=== PATIENT | male | born 1940 | race Caucasian/White ===

== ENCOUNTER 2017-11-20 10:12 | Day surgery (SDC) | payer MEDICARE ==
[2017-11-19 09:48] LABS: Urine Appearance CLEAR; Urine Bilirubin NEGATIVE (NEG); Urine Blood NEGATIVE (NEG); Urine Color YELLOW; Urine Glucose NEGATIVE (NEG); Urine Protein NEGATIVE (NEG); Urine Urobilinogen 0.2 mg/dL (0.2-1.0)
[2017-11-19 09:56] LABS: Urine Microscopic Reflex NO UMIC
[2017-11-19 10:01] LABS: Albumin 3.9 g/dL (3.4-5.0); Bilirubin Total 0.7 mg/dL (0.2-1.0); Potassium 3.9 mmol/L (3.5-5.1); Protein, Total 7.7 g/dL (6.4-8.2)
[2017-11-19 10:18] LABS: Absolute Monocytes 0.4 K/uL (0.1-1.3); Absolute Neutrophil 2.7 K/uL (1.8-8.0); Basophils % 0.8 % (0-1.3); Eosinophils % 13.6 % (0-4.4); Hematocrit 43.8 % (39.6-49.0); Lymphocytes % 33.3 % (15.3-44.8); MCH 29.8 pg (27.0-35.0); MCV 90.5 fL (80-100); MPV 7.7 fL (7.6-11.3); Monocytes % 7.4 % (3.3-12.3); RBC Red Blood Cell Count 4.84 M/uL (4.33-5.43)
[2017-11-19 10:22] LABS: Protime INR 0.97
--- OUTSIDE RECORDS SUMMARY | 2017-11-20 10:16 | XMS REPORT | Clinical Summary ---
:1940 Author Organization [facility] Address [address] [place] [address] Care Team Providers Name Role Phone Alex Veras MD Primary Care Provider Allergies No Known Allergies Current Medications Prescription Sig. Disp. Refills Start Date End Date Status losartan (COZAAR) 25 MG Take 25 mg by Active tablet mouth daily. red yeast rice 600 mg Take 600 mg by Active capsule mouth daily. Active Problems Not on file Family History Medical History Relation Name Comments Heart failure Father Stroke Father Cerebral aneurysm Mother Heart attack Mother Relation Name Status Comments Brother Alive Father Mother Social History Tobacco Use Types Packs/Day Years Used Date Former Smoker Smokeless Tobacco: Never Used Alcohol Use Drinks/Week oz/Week Comments No Sex Assigned at Date Recorded Not on file Last Filed Vital Signs Not on file Plan of Treatment Health Maintenance Due Date Last Done Comments SHINGRIX VACCINE (#1) 1991 ZOSTER VACCINE 2001 PNEUMOCOCCAL POLYSACCHARIDE VACCINE AGE 65 AND OVER 2006 PNEUMOCOCCAL-13 2006 INFLUENZA VACCINE 12/12/2017 Results Not on fileafter 11/19/2016 Insurance Payer Benefit Plan / Group Subscriber ID Type Phone Address UHC MEDICARE AARP MEDICARE COMPLETE MCR xxxxxxxxx HMO [phone] [place] [address]
[2017-11-20] MEDS ORDERED: Ringers Lactate 1,000 ML IV ONE (10:35)
[2017-11-20] MEDS ORDERED: LIDOCAINE 1% MPF 5 ML VIAL ONE (11:02)
[2017-11-20] MEDS ORDERED: PROPOFOL 200 MG/20 ML VIAL IV ONE (11:28)
[2017-11-20] MEDS ORDERED: LIDOCAINE 2% MPF 5 ML VIAL ONE (11:29)
[2017-11-20] MEDS ORDERED: ONDANSETRON HCL 40 MG/20 ML VIAL ONE (11:29)
[2017-11-20] MEDS ORDERED: FENTANYL CITR 100 MCG/2 ML ONE (11:29)
[2017-11-20] MEDS ORDERED: MIDAZOLAM HCL 2 MG/2 ML INJ ONE (11:29)
[2017-11-20] MEDS: BUPIVACAINE 0.25% PF 30 ML VIAL ONE ×2 (11:58→12:48)
[2017-11-20] MEDS ORDERED: CEFTRIAXONE/SWI 1gm 1 GM/10 ML SYR IV ONE (12:00)
[2017-11-20] MEDS: BACITRACIN OINTMENT 15 GM TUBE TOP ONE ×2 (12:19→12:49)
== END 2017-11-20 14:29 | disposition home or self-care (01) ==
LOC: OR 10:12
PROVIDERS: ATTEND Internal Medicine Hematology & Oncology
PROC: 0VTTXZZ Resection of Prepuce, External Approach (ICD-10-PCS; principal; 2017-11-20 11:30)
DX: N47.1 Phimosis (principal); N48.1 Balanitis; N39.0 Urinary tract infection, site not specified; I10 Essential (primary) hypertension; E78.5 Hyperlipidemia, unspecified
CPT/HCPCS: 36415; 54161; 80053; 81003; 85025; 85610; 85730; 87086; 87088; 88304; J0696; J2250; J2405; J3010

== ENCOUNTER 2017-12-08 01:12 | Emergency (ER) | payer MEDICARE ==
--- OUTSIDE RECORDS SUMMARY | 2017-12-08 01:14 | XMS REPORT | Clinical Summary ---
:1940 Author Organization [facility] Address [address] [place] [address] Care Team Providers Name Role Phone Alex [...] INFLUENZA VACCINE 12/12/2017 Results Not on fileafter 12/07/2016 Insurance Payer Benefit Plan / Group Subscriber ID Type Phone Address UHC MEDICARE AARP MEDICARE COMPLETE MCR xxxxxxxxx HMO [phone] [place] [address]
--- NOTE | 2017-12-08 01:59 | ER ---
Nurse's Notes [facility] Name: Jake Silva Age: 77 yrs Sex: Male : 1940 Arrival Date: 12/08/2017 Time: 01:17 Bed 20 Private MD: Diagnosis: Bleeding from vein right scrotum resolved Presentation: 12/08 01:27 Presenting complaint: Patient states: Bleeding from testicle about 20 min [employer]; States lp1 "I was just laying in bed and I felt something warm down my leg"; bleeding has stopped now, states circumcision procedure on 11/20/17. Transition of care: patient was not received from another setting of care. Onset of symptoms was December 08, 2017 at 01:00. Risk Assessment: Do you want to hurt yourself or someone else? Patient reports no desire to harm self or others. Initial Sepsis Screen: Does the patient meet any 2 criteria? No. Patient's initial sepsis screen is negative. Does the patient have a suspected source of infection? No. Patient's initial sepsis screen is negative. Care prior to arrival: None. 01:27 Method Of Arrival: Wheelchair lp1 01:27 Acuity: AKILA 5 lp1 Historical: - Allergies: 01:31 No Known Allergies; lp1 - Home Meds: 01:31 losartan oral oral [Active]; lp1 - PMHx: 01:31 Hypertension; lp1 - PSHx: 01:31 circumcision 11/20/2017; lp1 - Immunization history:: Adult Immunizations up to date. - Social history:: Smoking status: Patient/guardian denies using tobacco. - Ebola Screening: : No symptoms or risks identified at this time. Screenin:32 Abuse screen: Denies threats or abuse. Denies injuries from another. Nutritional lp1 screening: No deficits noted. Tuberculosis screening: No symptoms or risk factors identified. Fall Risk None identified. Assessment: 01:31 General: Appears in no apparent distress. Behavior is calm, cooperative, appropriate lp1 for age. Pain: Denies pain. Neuro: Level of Consciousness is awake, alert, obeys commands. Cardiovascular: Patient's skin is warm and dry. Respiratory: Respiratory effort is even, unlabored. GI: No signs and/or symptoms were reported involving the gastrointestinal system. : No signs and/or symptoms were reported regarding the genitourinary system. EENT: No signs and/or symptoms were reported regarding the EENT system. Derm: No active bleeding noted. Musculoskeletal: Circulation, motion, and sensation intact. Vital Signs: 01:30 BP 183 / 66; Pulse 54; Resp 18; Temp 97.9(O); Pulse Ox 97% on R/A; Weight 93.89 kg; lp1 Height 5 ft. 10 in. (177.80 cm); Pain 0/10; 02:15 BP 159 / 55; Pulse 56; Resp 18; Pulse Ox 98% on R/A; lp1 01:30 Body Mass Index 29.70 (93.89 kg, 177.80 cm) lp1 ED Course: 01:17 Patient arrived in ED. es 01:19 Seema Pandya, RN is Primary Nurse. lp1 01:30 Triage completed. lp1 01:30 Arm band placed on left wrist. lp1 01:32 Patient has correct armband on for positive identification. lp1 01:51 Eugenio Holt MD is Attending Physician. pkl 02:14 No provider procedures requiring assistance completed. Patient did not have IV access lp1 during this emergency room visit. 02:14 Dressings: Dressing to right scrotum with triple antibiotic ointment, gauze, tegaderm. lp1 Administered Medications: No medications were administered Outcome: 01:59 Discharge ordered by . pkl 02:15 Discharged to home ambulatory, with significant other. lp1 02:15 Condition: good 02:15 Discharge instructions given to patient, Instructed on discharge instructions, follow up and referral plans. Demonstrated understanding of instructions, follow-up care. 02:15 Patient left the ED. lp1 Signatures: Eugenio Holt MD MD pkJoanna Vazquez Laura, RN RN lp1
--- NOTE | 2017-12-08 01:59 | EDPHYS ---
Physician Documentation [facility] Name: Jake Silva Age: 77 yrs Sex: Male : 1940 Arrival Date: 12/08/2017 Time: 01:17 Bed 20 Private MD: ED Physician Eugenio Holt HPI: 12/08 01:55 This 77 yrs old Male presents to ER via Wheelchair with complaints of pkl Testicular Problem. 01:55 The patient presents with Bleeding from scrotum. Onset: The symptoms/episode pkl began/occurred just prior to arrival. Associated signs and symptoms: The patient has no apparent associated signs or symptoms. Historical: - Allergies: 01:31 No Known Allergies; lp1 - Home Meds: : losartan oral oral [Active]; lp1 - PMHx: : Hypertension; lp1 - PSHx: 01:31 circumcision 11/20/2017; lp1 - Immunization history:: Adult Immunizations up to date. - Social history:: Smoking status: Patient/guardian denies using tobacco. - Ebola Screening: : No symptoms or risks identified at this time. ROS: 01:55 Eyes: Negative for injury, pain, redness, and discharge, ENT: Negative for injury, pkl pain, and discharge, Neck: Negative for injury, pain, and swelling, Cardiovascular: Negative for chest pain, palpitations, and edema, Respiratory: Negative for shortness of breath, cough, wheezing, and pleuritic chest pain, Abdomen/GI: Negative for abdominal pain, nausea, vomiting, diarrhea, and constipation, Back: Negative for injury and pain, MS/Extremity: Negative for injury and deformity, Neuro: Negative for headache, weakness, numbness, tingling, and seizure. 01:55 : Positive for Bleeding from scrotum. Exam: 01:55 Head/Face: Normocephalic, atraumatic. Eyes: Pupils equal round and reactive to light, pkl extra-ocular motions intact. Lids and lashes normal. Conjunctiva and sclera are non-icteric and not injected. Cornea within normal limits. Periorbital areas with no swelling, redness, or edema. ENT: Nares patent. No nasal discharge, no septal abnormalities noted. Tympanic membranes are normal and external auditory canals are clear. Oropharynx with no redness, swelling, or masses, exudates, or evidence of obstruction, uvula midline. Mucous membranes moist. Neck: Trachea midline, no thyromegaly or masses palpated, and no cervical lymphadenopathy. Supple, full range of motion without nuchal rigidity, or vertebral point tenderness. No Meningismus. Chest/axilla: Normal chest wall appearance and motion. Nontender with no deformity. No lesions are appreciated. Cardiovascular: Regular rate and rhythm with a normal S1 and S2. No gallops, murmurs, or rubs. Normal PMI, no JVD. No pulse deficits. Respiratory: Lungs have equal breath sounds bilaterally, clear to auscultation and percussion. No rales, rhonchi or wheezes noted. No increased work of breathing, no retractions or nasal flaring. Abdomen/GI: Soft, non-tender, with normal bowel sounds. No distension or tympany. No guarding or rebound. No evidence of tenderness throughout. Back: No spinal tenderness. No costovertebral tenderness. Full range of motion. MS/ Extremity: Pulses equal, no cyanosis. Neurovascular intact. Full, normal range of motion. Neuro: Awake and alert, GCS 15, oriented to person, place, time, and situation. Cranial nerves II-XII grossly intact. Motor strength 5/5 in all extremities. Sensory grossly intact. Cerebellar exam normal. Normal gait. 01:55 : Bleeding from vein right scrotum resolved. Vital Signs: 01:30 BP 183 / 66; Pulse 54; Resp 18; Temp 97.9(O); Pulse Ox 97% on R/A; Weight 93.89 kg; lp1 Height 5 ft. 10 in. (177.80 cm); Pain 0/10; 02:15 BP 159 / 55; Pulse 56; Resp 18; Pulse Ox 98% on R/A; lp1 01:30 Body Mass Index 29.70 (93.89 kg, 177.80 cm) lp1 MDM: 01:51 Patient medically screened. pkl 01:55 Data reviewed: vital signs, nurses notes. pkl Administered Medications: No medications were administered Disposition: 12/08/17 01:59 Discharged to Home. Impression: Bleeding from vein right scrotum resolved. - Condition is Stable. - Medication Reconciliation Form, Thank You Letter, Antibiotic Education, Prescription Opioid Use form. - Follow up: Private Physician; When: 2 - 3 days; Reason: Re-evaluation by your physician. - Problem is new. - Symptoms have improved. Signatures: Eugenio Holt MD MD pkl Seema Pandya RN RN lp1 Corrections: (The following items were deleted from the chart) 02:15 01:59 12/08/2017 01:59 Discharged to Home. Impression: Bleeding from vein right scrotum lp1 resolved. Condition is Stable. Forms are Medication Reconciliation Form, Thank You Letter, Antibiotic Education, Prescription Opioid Use. Follow up: Private Physician; When: 2 - 3 days; Reason: Re-evaluation by your physician. Problem is new. Symptoms have improved. pkl
== END 2017-12-08 02:15 | disposition home or self-care (01) ==
LOC: ER 01:12
DX: N50.1 Vascular disorders of male genital organs (principal); I10 Essential (primary) hypertension
CPT/HCPCS: 99281

== ENCOUNTER 2019-03-26 12:43 | Emergency (ER) | payer MEDICARE ==
--- NOTE | 2019-03-26 12:48 | ER ---
Nurse's Notes [facility] Name: Jake Silva Age: 78 yrs Sex: Male : 1940 Arrival Date: 03/26/2019 Time: 12:46 Bed Waiting [facility] MD: Diagnosis: ED Course: 03/26 12:46 Patient arrived in ED. mr Administered Medications: No medications were administered Outcome: 12:47 Patient left the ED. hb Signatures: Alicia Braun Heather, RN RN hb
== END 2019-03-26 12:47 | disposition left against medical advice (07) ==
LOC: ER 12:43
DX: Z02.9 Encounter for administrative examinations, unspecified (principal)

== ENCOUNTER 2019-03-26 13:42 | Emergency (ER) | payer MEDICARE ==
--- NOTE | 2019-03-26 15:31 | RAD REPORT ---
EXAM DESCRIPTION: CT - Head Brain Wo Cont - 03/26/2019 3:16 pm CLINICAL HISTORY: Dizziness and visual disturbance COMPARISON: None. TECHNIQUE: Computed axial tomography of the head was obtained. IV contrast was not requested. All CT scans are performed using dose optimization technique as appropriate and may include automated exposure control or mA/KV adjustment according to patient size. FINDINGS: An intracranial bleed is not seen . The ventricles are normal in caliber. No extra-axial fluid collection is noted. Fluid within the sinuses/ mastoids is not seen. IMPRESSION: No acute intracranial abnormality is seen. If patient's symptoms persist MRI of the bra in would be recommended.
--- NOTE | 2019-03-26 16:33 | RAD REPORT ---
EXAM DESCRIPTION: Ricardo Single View03/26/2019 3:41 pm CLINICAL HISTORY: Hypertension COMPARISON: 2013 FINDINGS: The lungs appear clear of acute infiltrate. The heart is normal size IMPRESSION: No acute abnormalities displayed
[2019-03-26 16:59] LABS: Absolute Lymphocytes (CBC) 2.2 K/uL (0.7-4.9); Basophils % 1.2 % (0-1.3); Lymphocytes % 30.4 % (15.3-44.8); RBC Red Blood Cell Count 4.59 M/uL (4.33-5.43)
[2019-03-26 17:15] LABS: Protime INR 0.95
[2019-03-26 18:07] LABS: ALT/SGPT 18 U/L (12-78); AST/SGOT 17 U/L (15-37); Albumin 3.8 g/dL (3.4-5.0); Alkaline Phosphatase 60 U/L (45-117); BUN Blood Urea Nitrogen 22 mg/dL (7-18); Bicarbonate 29 mmol/L (21-32); Bilirubin Direct 0.1 mg/dL (0-0.2); Bilirubin Total 0.4 mg/dL (0.2-1.0); Glucose Level 80 mg/dL (74-106); Magnesium 2.3 mg/dL (1.8-2.4); NT PRO-BNP 303 pg/mL (<450); Potassium 4.5 mmol/L (3.5-5.1); Protein, Total 7.1 g/dL (6.4-8.2); Sodium Level 139 mmol/L (136-145); Troponin (Emerg Dept Use Only) < 0.02 ng/mL (0.0-0.045)
--- NOTE | 2019-03-26 18:18 | ER ---
Nurse's Notes [facility] Name: Jake Silva Age: 78 yrs Sex: Male : 1940 Arrival Date: 03/26/2019 Time: 13:46 Bed 27 Private MD: Diagnosis: Dizziness and giddiness Presentation: 03/26 14:01 Presenting complaint: Intermittent dizziness and confusion x 3-4 days. Denies hb nausea/fever/numbness/headache/cough. VAN NEGATIVE. Transition of care: patient was not received from another setting of care. Onset of symptoms was March 22, 2019. Risk Assessment: Do you want to hurt yourself or someone else? Patient reports no desire to harm self or others. Care prior to arrival: None. 14:01 Method Of Arrival: Ambulatory hb 14:01 Acuity: AKILA 3 hb 14:50 Initial Sepsis Screen: Does the patient meet any 2 criteria? No. Patient's initial tr5 sepsis screen is negative. Does the patient have a suspected source of infection? No. Patient's initial sepsis screen is negative. Historical: - Allergies: 14:03 No Known Allergies; hb - Home Meds: 14:03 losartan Oral [Active]; hb - PMHx: 14:03 Hypertension; hb - Immunization history:: Adult Immunizations up to date. - Social history:: Smoking status: Patient/guardian denies using tobacco. - Ebola Screening: : No symptoms or risks identified at this time. Screenin:50 Abuse screen: Denies threats or abuse. Nutritional screening: No deficits noted. tr5 Tuberculosis screening: No symptoms or risk factors identified. Fall Risk None identified. Assessment: 14:50 General: Appears in no apparent distress. Behavior is calm, cooperative. Pain: Denies tr5 pain. Neuro: Level of Consciousness is awake, alert, Oriented to person, place, time, situation, [employer] Offbearer are equal bilaterally Moves all extremities. Reports dizziness. Cardiovascular: Heart tones present Capillary refill < 3 seconds. Respiratory: Airway is patent Respiratory effort is even, unlabored, Respiratory pattern is regular, symmetrical. GI: No signs and/or symptoms were reported involving the gastrointestinal system. : No signs and/or symptoms were reported regarding the genitourinary system. EENT: No signs and/or symptoms were reported regarding the EENT system. Derm: No signs and/or symptoms reported regarding the dermatologic system. Musculoskeletal: No signs and/or symptoms reported regarding the musculoskeletal system. Vital Signs: 14:03 BP 151 / 63; Pulse 59; Resp 16; Temp 98.8; Pulse Ox 100% on R/A; Weight 86.64 kg; hb Height 5 ft. 10 in. (177.80 cm); Pain 0/10; 16:00 BP 167 / 60; Pulse 53; Resp 15; Pulse Ox 100% on R/A; tr5 14:03 Body Mass Index 27.41 (86.64 kg, 177.80 cm) hb NIH Stroke Scale Scores: 15:35 NIHSS Score: 0 jr8 ED Course: 13:46 Patient arrived in ED. mr 14:02 Triage completed. hb 14:03 Arm band placed on. hb 14:08 Edy Grider PA is PHCP. jr8 14:08 Hugo Lindsey MD is Attending Physician. jr8 14:50 Bed in low position. Call light in reach. Side rails up X 1. director blood bank on. Pulse tr5 ox on. NIBP on. 15:17 CT Head Brain wo Cont In Process Unspecified. EDMS 15:21 EKG done, by ed tech. reviewed by Edy ORR. sm3 15:42 XRAY Chest (1 view) In Process Unspecified. EDMS 15:49 Ubaldo Viramontes, RN is Primary Nurse. tr5 16:21 Inserted saline lock: 22 gauge in left hand, using aseptic technique. em1 18:16 Willie Roper MD is Referral Physician. jr8 18:16 Davi Ansari MD is Referral Physician. jr8 18:42 No provider procedures requiring assistance completed. IV discontinued. tr5 Administered Medications: No medications were administered Outcome: 18:16 Discharge ordered by . jr8 18:42 Discharged to home ambulatory. tr5 18:42 Condition: stable 18:42 Discharge instructions given to patient, Instructed on discharge instructions, follow up and referral plans. medication usage, Demonstrated understanding of instructions, follow-up care. 18:46 Patient left the ED. tr5 NIH Stroke Scale - NIH Stroke Score Date: 03/26/2019 Time: 15:35 Total Score = 0 1a. Level of Consciousness (LOC) - 0(Alert) 1b. Level of Consciousness (LOC) (Year \T\ Age) - 0(Both) 1c. LOC Commands (Open \T\ Closes Eyes/Contact Center Manager) - 0(Both) 2. Best Gaze (Lateral Gaze Paresis) - 0(Normal) 3. Visual Field Loss - 0(No visual loss) 4. Facial Palsy - 0(Normal) 5a. Left Arm: Motor (10-second hold) - 0(No drift) 5b. Right Arm: Motor (10-second hold) - 0(No drift) 6a. Left Leg: Motor (5-second hold - always test supine) - 0(No drift) 6b. Right Leg: Motor (5-second hold - always test supine) - 0(No drift) 7. Limb Ataxia (finger/nose \T\ heel/rivas - test with eyes open) - 0(Absent) 8. Sensory Loss (pinprick arms/legs/face) - 0(Normal) 9. Best Language: Aphasia (description/naming/reading) - 0(No aphasia) 10. Dysarthria (speech clarity - read or repeat words) - 0(Normal) 11. Extinction and Inattention (visual/tactile/auditory/spatial/personal) - 0(No abnormality) Initials: jr8 Signatures: Dispatcher [employer] Alicia Glover, Sung em1 Edy Grider PA PA jr8 Chiquita Kemp, RICKY RN Evelyn Singleton 3 Ubaldo Viramontes RN RN tr5
--- NOTE | 2019-03-26 18:19 | EDPHYS ---
Physician Documentation [facility] Name: Jake Silva Age: 78 yrs Sex: Male : 1940 Arrival Date: 03/26/2019 Time: 13:46 Bed 27 Private MD: ED Physician Hugo Lindsey HPI: 03/26 15:35 This 78 yrs old Male presents to ER via Ambulatory with complaints of jr8 Dizziness. 15:35 The patient presents with dizziness. Onset: The symptoms/episode began/occurred jr8 acutely, 3 day(s) ago. Context: occurred at home, occurred while the patient was at rest, just prior to the episode the patient experienced no apparent symptoms. Modifying factors: The symptoms are alleviated by nothing, the symptoms are aggravated by standing up. Associated signs and symptoms: Pertinent positives: blurred vision. Severity of symptoms: At their worst the symptoms were mild in the emergency department the symptoms have resolved. Patient's baseline: Neuro: alert and fully oriented, Motor: no deficits, Ambulation: walks without assistance, Speech: normal. The patient has not experienced similar symptoms in the past. The patient has not recently seen a physician. Historical: - Allergies: 14:03 No Known Allergies; hb - Home Meds: 14:03 losartan Oral [Active]; hb - PMHx: 14:03 Hypertension; hb - Immunization history:: Adult Immunizations up to date. - Social history:: Smoking status: Patient/guardian denies using tobacco. - Ebola Screening: : No symptoms or risks identified at this time. ROS: 15:35 Eyes: Negative for injury, pain, redness, and discharge, ENT: Negative for injury, jr8 pain, and discharge, Neck: Negative for injury, pain, and swelling, Cardiovascular: Negative for chest pain, palpitations, and edema, Respiratory: Negative for shortness of breath, cough, wheezing, and pleuritic chest pain, Abdomen/GI: Negative for abdominal pain, nausea, vomiting, diarrhea, and constipation, Back: Negative for injury and pain, MS/Extremity: Negative for injury and deformity, Skin: Negative for injury, rash, and discoloration. 15:35 Neuro: Positive for dizziness, gait disturbance, visual changes, Negative for altered mental status, headache, hearing loss, loss of consciousness, numbness, seizure activity, speech changes, syncope, near syncope, tingling, tinnitus, tremor, weakness. Exam: 15:35 Eyes: Pupils equal round and reactive to light, extra-ocular motions intact. Lids and jr8 lashes normal. Conjunctiva and sclera are non-icteric and not injected. Cornea within normal limits. Periorbital areas with no swelling, redness, or edema. ENT: Nares patent. No nasal discharge, no septal abnormalities noted. Tympanic membranes are normal and external auditory canals are clear. Oropharynx with no redness, swelling, or masses, exudates, or evidence of obstruction, uvula midline. Mucous membranes moist. Neck: Trachea midline, no thyromegaly or masses palpated, and no cervical lymphadenopathy. Supple, full range of motion without nuchal rigidity, or vertebral point tenderness. No Meningismus. Cardiovascular: Regular rate and rhythm with a normal S1 and S2. No gallops, murmurs, or rubs. Normal PMI, no JVD. No pulse deficits. Respiratory: Lungs have equal breath sounds bilaterally, clear to auscultation and percussion. No rales, rhonchi or wheezes noted. No increased work of breathing, no retractions or nasal flaring. Abdomen/GI: Soft, non-tender, with normal bowel sounds. No distension or tympany. No guarding or rebound. No evidence of tenderness throughout. Back: No spinal tenderness. No costovertebral tenderness. Full range of motion. Skin: Warm, dry with normal turgor. Normal color with no rashes, no lesions, and no evidence of cellulitis. MS/ Extremity: Pulses equal, no cyanosis. Neurovascular intact. Full, normal range of motion. Neuro: Awake and alert, GCS 15, oriented to person, place, time, and situation. Cranial nerves II-XII grossly intact. Motor strength 5/5 in all extremities. Sensory grossly intact. Cerebellar exam normal. Normal gait. Vital Signs: 14:03 BP 151 / 63; Pulse 59; Resp 16; Temp 98.8; Pulse Ox 100% on R/A; Weight 86.64 kg; hb Height 5 ft. 10 in. (177.80 cm); Pain 0/10; 16:00 BP 167 / 60; Pulse 53; Resp 15; Pulse Ox 100% on R/A; tr5 14:03 Body Mass Index 27.41 (86.64 kg, 177.80 cm) hb NIH Stroke Scale Scores: 15:35 NIHSS Score: 0 8 MDM: 14:08 Patient medically screened. 8 16:42 ED course: Nursing staff just now able to get blood on patient . 8 18:12 Data reviewed: vital signs, nurses notes, lab test result(s), EKG, radiologic studies, [facility] CT scan, plain films. Data interpreted: Pulse oximetry: on room air is 100 %. Interpretation: normal. Counseling: I had a detailed discussion with the patient and/or guardian regarding: the historical points, exam findings, and any diagnostic results supporting the discharge/admit diagnosis, lab results, radiology results, the need for outpatient follow up, a neurologist, to return to the emergency department if symptoms worsen or persist or if there are any questions or concerns that arise at home. ED course: Patient remains stable and without complaint at this time. No focal neurologic deficits. Blood work and CT unremarkable except slight elevation in renal function. Recommend f/u with neurology and nephrology at this time. If worse to come back immediately. Patient and family good with this. ED course: Long delay in care due to blood work having to be redrawn and resulted . 03/26 15:04 Order name: Basic Metabolic Panel; Complete Time: 18:08 [facility] 03/26 15:04 Order name: CBC with Diff 03/26 15:04 Order name: LFT's; Complete Time: 18:08 [facility] 03/26 15:04 Order name: Magnesium; Complete Time: 18:08 [facility] 03/26 15:04 Order name: NT PRO-BNP; Complete Time: 18:08 [facility] 03/26 15:04 Order name: PT-INR; Complete Time: 17:34 [facility] 03/26 15:04 Order name: Troponin (emerg Dept Use Only); Complete Time: 18:08 [facility] 03/26 15:04 Order name: XRAY Chest (1 view); Complete Time: 16:41 [facility] 03/26 15:04 Order name: EKG; Complete Time: 15:05 [facility] 03/26 15:04 Order name: Cardiac monitoring; Complete Time: 15:50 [facility] 03/26 15:04 Order name: EKG - Nurse/Tech; Complete Time: 15:49 [facility] 03/26 15:04 Order name: IV Saline Lock; Complete Time: 15:49 [facility] 03/26 15:04 Order name: Labs collected and sent; Complete Time: 15:49 [facility] 03/26 15:04 Order name: CT Head Brain wo Cont; Complete Time: 15:38 [facility] 03/26 15:04 Order name: O2 Per Protocol; Complete Time: 15:49 [facility] 03/26 15:04 Order name: O2 Sat Monitoring; Complete Time: 15:49 [facility] 03/26 17:03 Order name: Labs - recollect needed; Complete Time: 17:40 bd Administered Medications: No medications were administered Disposition: 03/26/19 18:16 Discharged to Home. Impression: Dizziness and giddiness. - Condition is Stable. - Discharge Instructions: Dizziness, Chronic Kidney Disease, Adult. - Medication Reconciliation Form, Thank You Letter, Antibiotic Education, Prescription Opioid Use form. - Follow up: Willie Roper MD; When: 1 - 2 days; Reason: Recheck today's complaints, Continuance of care, Re-evaluation by your physician. Follow up: Davi Ansari MD; When: 2 - 3 days; Reason: Recheck today's complaints, Continuance of care, Re-evaluation by your physician. - Problem is new. - Symptoms have improved. NIH Stroke Scale - NIH Stroke Score Date: 03/26/2019 Time: 15:35 Total Score = 0 1a. Level of Consciousness (LOC) - 0(Alert) 1b. Level of Consciousness (LOC) (Year \T\ Age) - 0(Both) 1c. LOC Commands (Open \T\ Closes Eyes/Powerhouse Attendant) - 0(Both) 2. Best Gaze (Lateral Gaze Paresis) - 0(Normal) 3. Visual Field Loss - 0(No visual loss) 4. Facial Palsy - 0(Normal) 5a. Left Arm: Motor (10-second hold) - 0(No drift) 5b. Right Arm: Motor (10-second hold) - 0(No drift) 6a. Left Leg: Motor (5-second hold - always test supine) - 0(No drift) 6b. Right Leg: Motor (5-second hold - always test supine) - 0(No drift) 7. Limb Ataxia (finger/nose \T\ heel/rivas - test with eyes open) - 0(Absent) 8. Sensory Loss (pinprick arms/legs/face) - 0(Normal) 9. Best Language: Aphasia (description/naming/reading) - 0(No aphasia) 10. Dysarthria (speech clarity - read or repeat words) - 0(Normal) 11. Extinction and Inattention (visual/tactile/auditory/spatial/personal) - 0(No abnormality) Initials: jr8 Addendum: 03/29/2019 19:32 Co-signature as Attending Physician, Hugo Lindsey MD. rn Signatures: Dispatcher [employer] EDMS Mariela Galvan Roman, MD MD rn Roszak, Josh, PA PA jr8 Chiquita Kemp RN RN Ubaldo Noriega RN RN tr5 Corrections: (The following items were deleted from the chart) 03/26 18:46 18:16 03/26/2019 18:16 Discharged to Home. Impression: Dizziness and giddiness. tr5 Condition is Stable. Forms are Medication Reconciliation Form, Thank You Letter, Antibiotic Education, Prescription Opioid Use. Follow up: Willie Roper; When: 1 - 2 days; Reason: Recheck today's complaints, Continuance of care, Re-evaluation by your physician. Follow up: Davi Ansari; When: 2 - 3 days; Reason: Recheck today's complaints, Continuance of care, Re-evaluation by your physician. Problem is new. Symptoms have improved. jr8
[2019-03-26 19:29] LABS: Blood Morphology Comment NOT SEEN (NOT SEEN); Platelet Estimate ADEQ; Urine White Blood Cell Casts OK
[2019-03-26 19:44] VITALS: TEMP 98.8; O2SAT 100
[2019-03-26 19:45] VITALS: BP 167/60
--- NOTE | 2019-03-27 08:19 | EKG ---
Test Date: 2019-03-26 Test Time: 15:10:00 Special Education Paraprofessional: TEJINDER MEASUREMENT RESULTS: Intervals: Rate: 55 NE: 238 QRSD: 90 QT: 438 QTc: 419 [place]: P: 37 NE: 238 QRS: -6 T: 31 INTERPRETIVE STATEMENTS: Sinus bradycardia with 1st degree AV block Moderate voltage criteria for LVH, may be normal variant Borderline ECG No previous ECG available for comparison Electronically Signed On 03-27-19 08:16:14 MANAGER INTELLIGENCE by Andrea De Luna
== END 2019-03-26 18:46 | disposition home or self-care (01) ==
LOC: ER 13:42
DX: R42 Dizziness and giddiness (principal); I10 Essential (primary) hypertension
CPT/HCPCS: 36415; 70450; 71045; 80048; 80076; 83735; 83880; 84484; 85025; 85610; 93005; 99284

== ENCOUNTER 2022-05-31 16:15 | Emergency (ER) | payer OTHER ==
--- OUTSIDE RECORDS SUMMARY | 2022-05-31 16:19 | XMS REPORT | Continuity of Care Document ---
:1940 Author Organization [facility] t Address [address] [place] [address] Care Team Providers Name Role Phone Eda DUTTA, Alex Sprague Primary Care Physician [phone] Nikko Vazquez Attending Clinician Unavailable Payers Payer Name Policy Type Policy Number Effective Date Expiration Date S ource [employer] MEDICARE C1 [id number] 2020 [facility] PPO 00:00:[address] [facility] [employer] MEDICARE C1 [id number] 2020 [facility] PPO 00:00:[address] [facility] [employer] MEDICARE C1 [id number] 2020 [facility] PPO 00:00:[address] [facility] [employer] MEDICARE C1 [id number] 2020 [facility] PPO 00:00:[address] [facility] [employer] MEDICARE C1 [id number] 2020 [facility] PPO 00:00:00 [facility] Problems Condition Condition Condition Status Onset Resolution Last Treating Co mments Source Name Details Category Date Date Treatment Clinician Date [id number] Cognitive Problem Com mon deficit as Spirit late - [facility] effect of [facility] ([facility]) 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) [facility] Skin mole Skin mole Problem Com mon Spirit - [facility] Benign Benign Problem Common hypertensi hypertensi Sp marino on on - [facility] 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 - [facility] [id number] Dementia Problem Commo n without [facility] Center type [id number] JAH Problem Common (generaliz Spirit ed anxiety - CHI disorder) [facility] Hyperlipid Hyperlipid Problem C ommon emia emia Spirit - [facility] [id number] Balanitis Problem Comm on Spirit - [facility] [id number] Urinary Problem Common tract Spirit infection - [facility]I without [facility] site Medical unspecifie Center d [id number] Allergic Problem Commo n rhinitis, Spirit unspecifie - CHI d [facility] y, Medical unspecifie Center d trigger Allergies, Adverse Reactions, Alerts This patient has no known allergies or adverse reactions. Family History Family Member Diagnosis Comments Start Date Stop Date Source Natural brother [facility] Natural father Heart failure [facility] Natural father Stroke [facility] Natural mother Cerebral aneurysm [facility] mother Heart attack [facility] Social History Social Habit Start Date Stop Date Quantity Comments Source History of [facility] - Tobacco Use [facility] Alcohol intake 2016-05-26 2016-05-26 Current Christian 00:00:00 00:00:00 non-drinker of Hospital alcohol (finding) Tobacco use and 2016-04-21 2016-04-21 Smokeless tobacco [facility] exposure 00:00:00 00:00:00 non-user Hospital Sex Assigned At [birth year] Christian 00:00:00 00:00:00 Hospital Smoking Status Start Date Stop Date Source Former Smoker 2022-03-17 00:00:00 2022-03-17 00:00:00 Common S pirit - [facility] Medications Ordered Filled Start Stop Current Ordering Indication Dosage Frequency Signature Comments Components Source Medication Medication Date Date Medication? Clinician (SIG) Name Name FLUoxetine FLUoxetine No 1{table QD FLUoxetine HCl 10 MG HCl 10 MG 11-12 t} HCl 10 MG 00:00: 00 losartan 2015-05 Yes 25mg QD Take 25 mg Met hodi (COZAAR) 25 2-[address] MG tablet 12:45: daily. Hospit a 04 l red yeast 2015-05 Yes 600mg QD Take 600 Met hodi rice 600 mg 2-[address] capsule 12:45: mouth [facility]ospita 04 daily. l Lisinopril Lisinopril No 1{table QD Lisinopril 10 MG 10 MG t} 10 MG Vitamin B12 Vitamin B12 No Vitamin 3000 MCG 3000 MCG B12 3000 MCG Aspirin 81 Aspirin 81 No 1{table QD Aspirin 81 81 MG 81 MG t} 81 MG Atorvastati Atorvastati No 1{table QD Atorvastat n Calcium n Calcium t} in Calcium 40 MG 40 MG 40 MG Flonase 50 Flonase 50 No 1{spray QD Flonase 50 MCG/DOSE MCG/DOSE _in_eac MCG/DOSE h_nostr il} Claritin-D Claritin-D No 1{table BID Claritin-D 12 Hour 12 Hour t_as_ne 12 Hour 5-120 MG 5-120 MG eded} 5-120 MG Cozaar 25 Cozaar 25 No 1{table QD Cozaar 25 MG MG t} MG Memantine Memantine No 1{table QD Memantine HCl 10 MG HCl 10 MG t} HCl 10 MG Vitamin D3 Vitamin D3 No Vitamin D3 Furosemide Furosemide No QD Furosemide 20 MG 20 MG 20 MG Krill Oil Krill Oil No Krill Oil FLUoxetine FLUoxetine No 1{table QD FLUoxetine HCl 10 MG HCl 10 MG t} HCl 10 MG Vitamin K Vitamin K No Vitamin K Apple Cider Apple Cider No Apple Vinegar Vinegar Cider Vinegar Donepezil Donepezil No 1.5{tab QD Donepezil HCl 10 MG HCl 10 MG let_at_ HCl 10 MG bedtime } Urinozinc Urinozinc No Urinozinc Prostate Prostate Prostate Vitamin E Vitamin E No Vitamin E Prostate Prostate No Prostate Health Health Health Lisinopril Lisinopril No 1{table QD Lisinopril 10 MG 10 MG t} 10 MG Vitamin B12 Vitamin B12 No Vitamin 3000 MCG 3000 MCG B12 3000 MCG Aspirin 81 Aspirin 81 No 1{table QD Aspirin 81 81 MG 81 MG t} 81 MG Atorvastati Atorvastati No 1{table QD Atorvastat n Calcium n Calcium t} in Calcium 40 MG 40 MG 40 MG Flonase 50 Flonase 50 No 1{spray QD Flonase 50 MCG/DOSE MCG/DOSE _in_eac MCG/DOSE h_nostr il} Claritin-D Claritin-D No 1{table BID Claritin-D 12 Hour 12 Hour t_as_ne 12 Hour 5-120 MG 5-120 MG eded} 5-120 MG Cozaar 25 Cozaar 25 No 1{table QD Cozaar 25 MG MG t} MG Memantine Memantine No 1{table QD Memantine HCl 10 MG HCl 10 MG t} HCl 10 MG Vitamin D3 Vitamin D3 No Vitamin D3 Furosemide Furosemide No QD Furosemide 20 MG 20 MG 20 MG Krill Oil Krill Oil No Krill Oil FLUoxetine FLUoxetine No 1{table QD FLUoxetine HCl 10 MG HCl 10 MG t} HCl 10 MG Vitamin K Vitamin K No Vitamin K Apple Cider Apple Cider No Apple Vinegar Vinegar Cider Vinegar Donepezil Donepezil No 1.5{tab QD Donepezil HCl 10 MG HCl 10 MG let_at_ HCl 10 MG bedtime } Urinozinc Urinozinc No Urinozinc Prostate Prostate Prostate Atorvastati Atorvastati No Atorvastat n Calcium n Calcium in Calcium 40 MG 40 MG 40 MG Prostate Prostate No Prostate Health Health Health Krill Oil Krill Oil No Krill Oil Urinozinc Urinozinc No Urinozinc Prostate Prostate Prostate Vitamin B12 Vitamin B12 No Vitamin 3000 MCG 3000 MCG B12 3000 MCG Flonase 50 Flonase 50 No 1{spray QD Flonase 50 MCG/DOSE MCG/DOSE _in_eac MCG/DOSE h_nostr il} Apple Cider Apple Cider No Apple Vinegar Vinegar Cider Vinegar Atorvastati Atorvastati No 1{table QD Atorvastat n Calcium n Calcium t} in Calcium 40 MG 40 MG 40 MG Claritin-D Claritin-D No 1{table BID Claritin-D 12 Hour 12 Hour t_as_ne 12 Hour 5-120 MG 5-120 MG eded} 5-120 MG Furosemide Furosemide No QD Furosemide 20 MG 20 MG 20 MG FLUoxetine FLUoxetine No FLUoxetine HCl 10 MG HCl 10 MG HCl 10 MG Losartan Losartan No Losartan Potassium Potassium Potassium 25 MG 25 MG 25 MG Cozaar 25 Cozaar 25 No 1{table QD Cozaar 25 MG MG t} MG Memantine Memantine No 1{table BID Memantine HCl 10 MG HCl 10 MG t} HCl 10 MG Vitamin K Vitamin K No Vitamin K Vitamin E Vitamin E No Vitamin E Aspirin 81 Aspirin 81 No 1{table QD Aspirin 81 81 MG 81 MG t} 81 MG Vitamin D3 Vitamin D3 No Vitamin D3 Furosemide Furosemide No Furosemide 20 MG 20 MG 20 MG Donepezil Donepezil No 1.5{tab QD Donepezil HCl 10 MG HCl 10 MG let_at_ HCl 10 MG bedtime } FLUoxetine FLUoxetine No 1{table QD FLUoxetine HCl 10 MG HCl 10 MG t} HCl 10 MG Lisinopril Lisinopril No 1{table QD Lisinopril 10 MG 10 MG t} 10 MG Lisinopril Lisinopril No 1{table QD Lisinopril 10 MG 10 MG t} 10 MG Vitamin E Vitamin E No Vitamin E Prostate Prostate No [facility] Apple Cider Apple Cider No Apple Vinegar Vinegar Cider Vinegar Atorvastati Atorvastati No 1{table QD Atorvastat n Calcium n Calcium t} in Calcium 40 MG 40 MG 40 MG Aspirin 81 Aspirin 81 No 1{table QD Aspirin 81 81 MG 81 MG t} 81 MG Vitamin D3 Vitamin D3 No Vitamin D3 Claritin-D Claritin-D No 1{table BID Claritin-D 12 Hour 12 Hour t_as_ne 12 Hour 5-120 MG 5-120 MG eded} 5-120 MG Urinozinc Urinozinc No Urinozinc Prostate Prostate Prostate Krill Oil Krill Oil No Krill Oil Donepezil Donepezil No 1.5{tab QD Donepezil HCl 10 MG HCl 10 MG let_at_ HCl 10 MG bedtime } FLUoxetine FLUoxetine No FLUoxetine HCl 10 MG HCl 10 MG HCl 10 MG Flonase 50 Flonase 50 No 1{spray QD Flonase 50 MCG/DOSE MCG/DOSE _in_eac MCG/DOSE h_nostr il} Vitamin K Vitamin K No Vitamin K Vitamin B12 Vitamin B12 No Vitamin 3000 MCG 3000 MCG B12 3000 MCG Memantine Memantine No 1{table BID Memantine HCl 10 MG HCl 10 MG t} HCl 10 MG Atorvastati Atorvastati No Atorvastat n Calcium n Calcium in Calcium 40 MG 40 MG 40 MG Losartan Losartan No Losartan Potassium Potassium Potassium 25 MG 25 MG 25 MG Furosemide Furosemide No Furosemide 20 MG 20 MG 20 MG FLUoxetine FLUoxetine No 1{table QD FLUoxetine HCl 10 MG HCl 10 MG t} HCl 10 MG Cozaar 25 Cozaar 25 No 1{table QD Cozaar 25 MG MG t} MG Furosemide Furosemide No QD Furosemide 20 MG 20 MG 20 MG Lisinopril Lisinopril No 1{table QD Lisinopril 10 MG 10 MG t} 10 MG Vitamin E Vitamin E No Vitamin E Prostate Prostate No [facility] Apple Cider Apple Cider No Apple Vinegar Vinegar Cider Vinegar Atorvastati Atorvastati No 1{table QD Atorvastat n Calcium n Calcium t} in Calcium 40 MG 40 MG 40 MG Aspirin 81 Aspirin 81 No 1{table QD Aspirin 81 81 MG 81 MG t} 81 MG Vitamin D3 Vitamin D3 No Vitamin D3 Claritin-D Claritin-D No 1{table BID Claritin-D 12 Hour 12 Hour t_as_ne 12 Hour 5-120 MG 5-120 MG eded} 5-120 MG Urinozinc Urinozinc No Urinozinc Prostate Prostate Prostate Krill Oil Krill Oil No Krill Oil Donepezil Donepezil No 1.5{tab QD Donepezil HCl 10 MG HCl 10 MG let_at_ HCl 10 MG bedtime } FLUoxetine FLUoxetine No FLUoxetine HCl 10 MG HCl 10 MG HCl 10 MG Flonase 50 Flonase 50 No 1{spray QD Flonase 50 MCG/DOSE MCG/DOSE _in_eac MCG/DOSE h_nostr il} Vitamin K Vitamin K No Vitamin K Vitamin B12 Vitamin B12 No Vitamin 3000 MCG 3000 MCG B12 3000 MCG Memantine Memantine No 1{table BID Memantine HCl 10 MG HCl 10 MG t} HCl 10 MG Atorvastati Atorvastati No Atorvastat n Calcium n Calcium in Calcium 40 MG 40 MG 40 MG Losartan Losartan No Losartan Potassium Potassium Potassium 25 MG 25 MG 25 MG Furosemide Furosemide No Furosemide 20 MG 20 MG 20 MG FLUoxetine FLUoxetine No 1{table QD FLUoxetine HCl 10 MG HCl 10 MG t} HCl 10 MG Cozaar 25 Cozaar 25 No 1{table QD Cozaar 25 MG MG t} MG Furosemide Furosemide No QD Furosemide 20 MG 20 MG 20 MG Krill Oil Krill Oil No Krill Oil Vitamin K Vitamin K No Vitamin K Apple Cider Apple Cider No Apple Vinegar Vinegar Cider Vinegar Centrum Centrum No Centrum Adults Adults Adults Flonase 50 Flonase 50 No 1{spray QD Flonase 50 MCG/DOSE MCG/DOSE _in_eac MCG/DOSE h_nostr il} FLUoxetine FLUoxetine No FLUoxetine HCl 10 MG HCl 10 MG HCl 10 MG Cozaar 25 Cozaar 25 No 1{table QD Cozaar 25 MG MG t} MG Memantine Memantine No 1{table BID Memantine HCl 10 MG HCl 10 MG t} HCl 10 MG Claritin-D Claritin-D No 1{table BID Claritin-D 12 Hour 12 Hour t_as_ne 12 Hour 5-120 MG 5-120 MG eded} 5-120 MG Atorvastati Atorvastati No Atorvastat n Calcium n Calcium in Calcium 40 MG 40 MG 40 MG Aspirin 81 Aspirin 81 No 1{table QD Aspirin 81 81 MG 81 MG t} 81 MG Furosemide Furosemide No Furosemide 20 MG 20 MG 20 MG Magnesium Magnesium No Magnesium Citrate 100 Citrate 100 Citrate MG MG 100 MG FLUoxetine FLUoxetine No 1{capsu QD FLUoxetine HCl 20 MG HCl 20 MG le} HCl 20 MG Vitamin E Vitamin E No Vitamin E Lisinopril Lisinopril No 1{table QD Lisinopril 10 MG 10 MG t} 10 MG Furosemide Furosemide No QD Furosemide 20 MG 20 MG 20 MG Prostate Prostate No Prostate Health Health Health Vitamin D3 Vitamin D3 No Vitamin D3 Atorvastati Atorvastati No 1{table QD Atorvastat n Calcium n Calcium t} in Calcium 40 MG 40 MG 40 MG Donepezil Donepezil No 1.5{tab QD Donepezil HCl 10 MG HCl 10 MG let_at_ HCl 10 MG bedtime } Losartan Losartan No Losartan Potassium Potassium Potassium 25 MG 25 MG 25 MG Urinozinc Urinozinc No Urinozinc Prostate Prostate Prostate Vitamin B12 Vitamin B12 No Vitamin 3000 MCG 3000 MCG B12 3000 MCG Flonase 50 Flonase 50 No 1{spray QD Flonase 50 MCG/DOSE MCG/DOSE _in_eac MCG/DOSE h_nostr il} Apple Cider Apple Cider No Apple Vinegar Vinegar Cider Vinegar Vitamin K Vitamin K No Vitamin K Urinozinc Urinozinc No Urinozinc Prostate Prostate Prostate Vitamin E Vitamin E No Vitamin E Furosemide Furosemide No QD Furosemide 20 MG 20 MG 20 MG Atorvastati Atorvastati No 1{table QD Atorvastat n Calcium n Calcium t} in Calcium 40 MG 40 MG 40 MG Claritin-D Claritin-D No 1{table BID Claritin-D 12 Hour 12 Hour t_as_ne 12 Hour 5-120 MG 5-120 MG eded} 5-120 MG Krill Oil Krill Oil No Krill Oil Cozaar 25 Cozaar 25 No 1{table QD Cozaar 25 MG MG t} MG Vitamin D3 Vitamin D3 No Vitamin D3 Lisinopril Lisinopril No 1{table QD Lisinopril 10 MG 10 MG t} 10 MG Donepezil Donepezil No 1.5{tab QD Donepezil HCl 10 MG HCl 10 MG let_at_ HCl 10 MG bedtime } Vitamin B12 Vitamin B12 No Vitamin 3000 MCG 3000 MCG B12 3000 MCG Urinozinc Urinozinc No Urinozinc Prostate Prostate Prostate Lisinopril Lisinopril No 1{table QD Lisinopril 10 MG 10 MG t} 10 MG Vitamin K Vitamin K No Vitamin K Donepezil Donepezil No 1.5{tab QD Donepezil HCl 10 MG HCl 10 MG let_at_ HCl 10 MG bedtime } Flonase 50 Flonase 50 No 1{spray QD Flonase 50 MCG/DOSE MCG/DOSE _in_eac MCG/DOSE h_nostr il} Claritin-D Claritin-D No 1{table BID Claritin-D 12 Hour 12 Hour t_as_ne 12 Hour 5-120 MG 5-120 MG eded} 5-120 MG Furosemide Furosemide No QD Furosemide 20 MG 20 MG 20 MG Vitamin D3 Vitamin D3 No Vitamin D3 Vitamin B12 Vitamin B12 No Vitamin 3000 MCG 3000 MCG B12 3000 MCG FLUoxetine FLUoxetine No 1{table QD FLUoxetine HCl 10 MG HCl 10 MG t} HCl 10 MG Aspirin 81 Aspirin 81 No 1{table QD Aspirin 81 81 MG 81 MG t} 81 MG Vitamin E Vitamin E No Vitamin E Apple Cider Apple Cider No Apple Vinegar Vinegar Cider Vinegar Atorvastati Atorvastati No 1{table QD Atorvastat n Calcium n Calcium t} in Calcium 40 MG 40 MG 40 MG Krill Oil Krill Oil No Krill Oil Cozaar 25 Cozaar 25 No 1{table QD Cozaar 25 MG MG t} MG Urinozinc Urinozinc No Urinozinc Prostate Prostate Prostate Lisinopril Lisinopril No 1{table QD Lisinopril 10 MG 10 MG t} 10 MG Vitamin K Vitamin K No Vitamin K Donepezil Donepezil No 1.5{tab QD Donepezil HCl 10 MG HCl 10 MG let_at_ HCl 10 MG bedtime } Flonase 50 Flonase 50 No 1{spray QD Flonase 50 MCG/DOSE MCG/DOSE _in_eac MCG/DOSE h_nostr il} Claritin-D Claritin-D No 1{table BID Claritin-D 12 Hour 12 Hour t_as_ne 12 Hour 5-120 MG 5-120 MG eded} 5-120 MG Furosemide Furosemide No QD Furosemide 20 MG 20 MG 20 MG Vitamin D3 Vitamin D3 No Vitamin D3 Vitamin B12 Vitamin B12 No Vitamin 3000 MCG 3000 MCG B12 3000 MCG FLUoxetine FLUoxetine No 1{table QD FLUoxetine HCl 10 MG HCl 10 MG t} HCl 10 MG Aspirin 81 Aspirin 81 No 1{table QD Aspirin 81 81 MG 81 MG t} 81 MG Vitamin E Vitamin E No Vitamin E Apple Cider Apple Cider No Apple Vinegar Vinegar Cider Vinegar Atorvastati Atorvastati No 1{table QD Atorvastat n Calcium n Calcium t} in Calcium 40 MG 40 MG 40 MG Krill Oil Krill Oil No Krill Oil Cozaar 25 Cozaar 25 No 1{table QD Cozaar 25 MG MG t} MG Vitamin E Vitamin E No Vitamin E Prostate Prostate No Prostate Health Health Health Vital Signs Vital Name Observation Time Observation Value Comments Source height 2022-03-17 08:10:00 69 [in_i] Common S pirit [facility] weight 2022-03-17 08:10:00 167.5 [lb_av] [facility] - [facility] temperature 2022-03-17 08:10:00 97.5 [degF] Common S pirit [facility] bmi 2022-03-17 08:10:00 24.73 kg/m2 [facility] S pirit [facility] oximetry 2022-03-17 08:10:00 98 % Common S pirit [facility] respiratory rate 2022-03-17 08:10:00 18 /min Comm on [facility] blood pressure 2022-03-17 08:10:00 124 mm[Hg] Common [facility] - systolic [facility] blood pressure 2022-03-17 08:10:00 51 mm[Hg] Common [facility] - diastolic [facility] height 2021-11-18 10:00:00 69 [in_i] [facility] weight 2021-11-18 10:00:00 172.4 [lb_av] [facility] temperature 2021-11-18 10:00:00 98.4 [degF] Common [facility] bmi 2021-11-18 10:00:00 25.46 kg/m2 [facility] oximetry 2021-11-18 10:00:00 94 % Common [facility] respiratory rate 2021-11-18 10:00:00 16 /min Comm on [facility] blood pressure 2021-11-18 10:00:00 135 mm[Hg] Common [facility] - systolic [facility] blood pressure 2021-11-18 10:00:00 62 mm[Hg] Common [facility] diastolic [facility] height 2021-11-18 10:10:00 69 [in_i] Common [facility] weight 2021-11-18 10:10:00 172.4 [lb_av] [facility] temperature 2021-11-18 10:10:00 98.4 [degF] Common [facility] bmi 2021-11-18 10:10:00 25.46 kg/m2 [facility] S [facility] oximetry 2021-11-18 10:10:00 95 % Common [facility] respiratory rate 2021-11-18 10:10:00 16 /min Comm on [facility] blood pressure 2021-11-18 10:10:00 135 mm[Hg] [facility] - systolic [facility] blood pressure 2021-11-18 10:10:00 62 mm[Hg] [facility] - diastolic [facility] height 2021-07-19 10:50:00 69 [in_i] Common S pirit [facility] weight 2021-07-19 10:50:00 171.3 [lb_av] Common [facility] temperature 2021-07-19 10:50:00 98.4 [degF] Common S pirit [facility] bmi 2021-07-19 10:50:00 25.29 kg/m2 Common S pirit [facility] oximetry 2021-07-19 10:50:00 98 % Common S [facility] respiratory rate 2021-07-19 10:50:00 16 /min Comm on [facility] blood pressure 2021-07-19 10:50:00 132 mm[Hg] Common Spirit - systolic [facility] blood pressure 2021-07-19 10:50:00 67 mm[Hg] Common [facility] - diastolic [facility] height 2021-02-22 13:20:00 69 [in_i] [facility] 2021-02-22 13:20:00 186.7 [lb_av] [facility] temperature 2021-02-22 13:20:00 98.1 [degF] Common S pirit [facility] bmi 2021-02-22 13:20:00 27.57 kg/m2 Common S pirit [facility] oximetry 2021-02-22 13:20:00 95 % [facility] 2021-02-22 13:20:00 17 /min Comm on [facility] blood pressure 2021-02-22 13:20:00 135 mm[Hg] Common [facility] - systolic [facility] blood pressure 2021-02-22 13:20:00 75 mm[Hg] Common Spirit - diastolic [facility] height 2020-12-14 13:20:00 69 [in_i] Common [facility] weight 2020-12-14 13:20:00 191.7 [lb_av] Common [facility] temperature 2020-12-14 13:20:00 98.4 [degF] Common [facility] bmi 2020-12-14 13:20:00 28.31 kg/m2 Common [facility] oximetry 2020-12-14 13:20:00 97 % [facility] respiratory rate 2020-12-14 13:20:00 16 /min Comm on [facility] blood pressure 2020-12-14 13:20:00 132 mm[Hg] Common [facility] systolic [facility] blood pressure 2020-12-14 13:20:00 72 mm[Hg] [facility] diastolic [facility] Procedures This patient has no known procedures. Plan of Care Planned Activity Planned Date Details Comments Source Future Scheduled 2022-04-28 COVID-19 VACCINE (#1) [facility] Test 18:17:55 [code = COVID-19 VACCINE (#1)] Future Scheduled 2022-04-28 SHINGLES VACCINES (1 Met [facility] Test 18:17:55 of 2) [code = SHINGLES VACCINES (1 of 2)] Future Scheduled 2022-04-28 65+ [facility]AL [facility] 18:17:55 VACCINE (1 - PCV) [code = 65+ PNEUMOCOCCAL VACCINE (1 - PCV)] Future Scheduled 2022-04-28 INFLUENZA VACCINE Method [facility] Test 18:17:55 [code = INFLUENZA VACCINE] Encounters Start End Encounter Admission Attending Care Care Encounter Source Date/Time Date/Time Type Type Clinicians Facility Department ID 2022-03-15 Outpatient Vazquez, [facility] [id number] Common 10:15:04 Nikko [facility] 2022-03-10 Outpatient Vazquez, [facility] [id number] Common 08:46:03 Nikko [facility] 2021-06-08 Outpatient Vazquez, [facility] [id number] Common 13:58:43 Nikko [id number] [facility] 2021-06-08 Outpatient Vazquez, STLMLC STLMLC [id number] Common 13:33:51 Nikko [facility] 2021-06-08 Outpatient Vazquez, STLMLC STLMLC [id number] Common 13:33:22 Nikko [id number] [facility] 2021-06-08 Outpatient Vazquez, STLMLC STLMLC [id number] Common 13:19:40 Nikko [address] [facility] 2021-06-08 Outpatient Vazquez, STLMLC STLMLC [id number] Common 12:45:14 Nikko [address] [facility] 2021-06-08 Outpatient Vazquez, STLMLC STLMLC [id number] Common 12:26:05 Nikko [id number] [facility] 2022-03-17 2022-03-17 OFFICE STLMLC STLMLC [id number] Co mmon 00:00:00 00:00:00 VISIT Spirit ESTAB PT - CHI LEVEL 4 [facility] 2021-11-18 2021-11-18 OFFICE STLMLC STLMLC [id number] Co mmon 00:00:00 00:00:00 VISIT Spirit ESTAB PT - CHI LEVEL [address] [place] [address] 2021-11-18 2021-11-18 SUB ANNUAL STLMLC STLMLC [id number] Common 00:00:00 00:00:00 MCR Spirit WELLNESS - CHI VISIT [facility] 2021-07-19 2021-07-19 OFFICE STLMLC STLMLC [id number] Co mmon 00:00:00 00:00:00 VISIT Spirit ESTAB PT - CHI LEVEL 4 [facility] 2021-02-23 2021-02-23 (TEL) STLMLC STLMLC [id number] Co mmon 00:00:00 00:00:00 Spirit CHI [facility] 2021-02-22 2021-02-22 OFFICE STLMLC STLMLC [id number] Co mmon 00:00:00 00:00:00 VISIT Spirit ESTAB PT - CHI LEVEL 4 [facility] 2021-02-09 2021-02-09 (TEL) STLMLC STLMLC [id number] Co mmon 00:00:00 00:00:00 [facility] 2020-12-14 2020-12-14 OFFICE STLMLC STLMLC [id number] Co mmon 00:00:00 00:00:00 VISIT [facility] 4 [facility] 2020-11-22 2020-11-22 (TEL) STLMLC STLMLC [id number] Co mmon 00:00:00 00:00:00 [facility] 2020-11-12 2020-11-12 Outpatient STLMLC STLMLC [id number] Common 00:00:00 00:00:00 [facility] 2020-08-24 2020-08-24 Outpatient STLMLC STLMLC [id number] Common 00:00:00 00:00:00 [facility] 2020-08-09 2020-08-09 Outpatient STLMLC STLMLC [id number] Common 00:00:00 00:00:00 [facility] 2020-08-09 2020-08-09 Outpatient STLMLC STLMLC [id number] Common 00:00:00 00:00:00 [facility] 2020-06-09 2020-06-09 Outpatient STLMLC STLMLC [id number] Common 00:00:00 00:00:00 [facility] Results This patient has no known results.
[2022-05-31] MEDS ORDERED: TDAP (DIPHTH,PERTUSS(ACELL),TET VAC) 0.5 ML VIAL IMVAC ONE (16:47)
--- NOTE | 2022-05-31 17:29 | RAD REPORT ---
EXAM DESCRIPTION: RADSacrum And Coccyx05/31/2022 5:15 pm CLINICAL HISTORY: Back pain status post fall FINDINGS: An oblique lucency is present within the distal sacrum on the lateral view suspicious for a mildly displaced fracture
--- NOTE | 2022-05-31 17:49 | RAD REPORT ---
EXAM DESCRIPTION: CT - Head C Spine Mpr Wo Con - 05/31/2022 5:36 pm CLINICAL HISTORY: Head and neck injury status post fall. Head and neck pain COMPARISON: July 2021 TECHNIQUE: Computed axial tomography of the head and cervical spine was obtained. Sagittal and coronal reconstruction was performed. All CT scans are performed using dose optimization technique as appropriate and may include automated exposure control or mA/KV adjustment according to patient size. FINDINGS: An intracranial bleed is not seen. The ventricles are normal in caliber. An extra-axial fl uid collection is not noted.Fluid within the visualized sinuses and mastoids is not seen A cervical fracture is not visualized. No dislocation is noted. IMPRESSION: No acute intracranial abnormality is seen. A cervical fracture is not visualized. If the patient continues to have symptoms to suggest intracra nial /spinal cord pathology then MRI would be recommended
--- NOTE | 2022-05-31 18:04 | ER ---
Nurse's Notes [facility] Name: Jake Silva Age: 82 yrs Sex: Male : 1940 Arrival Date: 05/31/2022 Time: 16:16 Bed 9 Private MD: Nikko Vazquez Diagnosis: Oblique fracture of sacrum;Unspecified injury of head, initial encounter;Fall on same level from slipping, tripping and stumbling without subsequent striking against object Presentation: 05/31 16:23 Chief complaint: Patient states: pt slipped fell and hit his head, no LOC, was able to iw walk after the fall. 16:23 Acuity: AKILA 4 iw 16:23 Method Of Arrival: Wheelchair iw 16:24 Coronavirus screen: At this time, the client does not indicate any symptoms associated iw with coronavirus-19. Ebola Screen: Patient negative for fever greater than or equal to 101.5 degrees Fahrenheit, and additional compatible Ebola Virus Disease symptoms Patient denies exposure to infectious person. Patient denies travel to an Ebola-affected area in the 21 days before illness onset. No symptoms or risks identified at this time. Risk Assessment: Do you want to hurt yourself or someone else? Patient reports no desire to harm self or others. Onset of symptoms was May 31, 2022. 16:25 Initial Sepsis Screen: Does the patient meet any 2 criteria? No. Patient's initial iw sepsis screen is negative. Does the patient have a suspected source of infection? No. Patient's initial sepsis screen is negative. Historical: - Allergies: 16:24 No Known Allergies; iw - Home Meds: 16:47 losartan Oral [Active]; eh3 - PMHx: 16:24 Hypertension; Dementia; iw 16:25 Anxiety; Alzheimer's disease; iw - Immunization history:: Last tetanus immunization: unknown. - Social history:: Smoking status: . Screenin:[facility] ED Fall Risk Assessment (Adult) History of falling in the last 3 months, [facility] including since admission Yes- single mechanical fall (1 pt) Confusion or Disorientation No (0 pts) Intoxicated or Sedated No (0 pts) Impaired Gait No (0 pts) Mobility Assist Device Used No (0 pt) Altered Elimination No (0 pt) Score/Fall Risk Level 0 - 2 = Low Risk. Abuse screen: Denies threats or abuse. Denies injuries from another. Nutritional screening: No deficits noted. Tuberculosis screening: No symptoms or risk factors identified. Assessment: 16:37 General: Appears in no apparent distress. comfortable, Behavior is calm, cooperative, eh3 appropriate for age. Pain: Complains of pain in back of head. Neuro: Level of Consciousness is awake, alert, obeys commands, Oriented to person, place, time, situation. Cardiovascular: Capillary refill < 3 seconds Patient's skin is warm and dry. Respiratory: Airway is patent Respiratory effort is even, unlabored, Respiratory pattern is regular, symmetrical. GI: No signs and/or symptoms were reported involving the gastrointestinal system. Abdomen is round non-distended. : No signs and/or symptoms were reported regarding the genitourinary system. EENT: No signs and/or symptoms were reported regarding the EENT system. Derm: Skin is pink, warm \T\ dry. Wound noted scalp Wound is 10mm superficial wound to back of head, bleeding minimal and controlled. Musculoskeletal: No signs and/or symptoms reported regarding the musculoskeletal system. Circulation, motion, and sensation intact. Range of motion: intact in all extremities. 17:30 Reassessment: Patient appears in no apparent distress at this time. Patient and/or eh3 family updated on plan of care and expected duration. Pain level reassessed. Patient is alert, oriented x 3, equal unlabored respirations, skin warm/dry/pink. Vital Signs: 16:25 BP 128 / 88; Pulse 66; Resp 16; Temp 97.8(O); Pulse Ox 100% on R/A; Weight 65.77 kg; iw Height 5 ft. 9 in. (175.26 cm); 17:04 BP 139 / 64; Pulse 66; Resp 16; Pulse Ox 100% on R/A; eh3 18:00 BP 162 / 60; Pulse 54; Resp 16; Pulse Ox 100% on R/A; eh3 16:25 Body Mass Index 21.41 (65.77 kg, 175.26 cm) iw ED Course: 16:16 Patient arrived in ED. mr 16:16 Nikko Vazquez DO is Private Physician. mr 16:18 [facility] kb 16:18 Cristino Sanchez MD is Attending Physician. kb 16:24 Triage completed. iw 16:25 Arm band placed on. iw 16:36 Judi Gallego, RN is Primary Nurse. eh3 16:37 Patient has correct armband on for positive identification. Bed in low position. Call eh3 light in reach. Side rails up X2. Adult w/ patient. Pulse ox on. NIBP on. Door closed. Noise minimized. 17:04 Wound care: to laceration located on back of head was irrigated with normal saline. eh3 17:17 Sacrum And Coccyx XRAY In Process Unspecified. EDMS 17:38 CT Head C Spine In Process Unspecified. EDMS 18:19 No provider procedures requiring assistance completed. Patient did not have IV access eh3 during this emergency room visit. Dressings: Band aid x 2 back of head non-adherent dressing x 2 back of head. 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 Exp: eh3 11/25/2022. Lot #: [id number]. } Route: IM; Site: left deltoid; 17:26 Follow up: Response: (VIS) Vaccine information sheet provided today. Questions and/or eh3 concerns addressed. VIS edition date: Dec 17, 2020.; No adverse reaction Medication: 16:46 Vaccine Information Statement (VIS) provided today. Questions and/or concerns eh3 addressed. VIS edition date: December 17, 2020. Outcome: 18:03 Discharge ordered by . kb 18:19 Discharged to home ambulatory, with family. eh3 18:19 Condition: stable 18:19 Discharge instructions given to patient, family, Instructed on discharge instructions, follow up and referral plans. wound care, Demonstrated understanding of instructions, follow-up care, wound care. 18:20 Patient left the ED. eh3 Signatures: Dispatcher [employer] EDMS Mell Canela, DWAYNE VO-Alicia Brewster Irene, RICKY RN Judi Gallego, RICKY RN eh3
--- NOTE | 2022-05-31 18:04 | EDPHYS ---
Physician Documentation [facility] Name: Jake Silva Age: 82 yrs Sex: Male : 1940 Arrival Date: 05/31/2022 Time: 16:16 Bed 9 Private MD: George [facility] ED Physician Cristino Sanchez HPI: 05/31 18:24 This 82 yrs old Male presents to ER via Wheelchair with complaints of Fall Injury, Head kb Injury-Adult. 18:24 Details of fall: The patient fell from an upright position, while walking. Onset: The kb symptoms/episode began/occurred just prior to arrival. Associated injuries: The patient sustained injury to the head, abrasion, hematoma, injury to the low back, pain with movement. Severity of symptoms: At their worst the symptoms were moderate, in the emergency department the symptoms are unchanged. The patient has not experienced similar symptoms in the past. The patient has not recently seen a physician. Pt slipped on wet concrete and fell. c/o pain to back of head. Family reports pt was complaining of pain to tailbone when he sat down, but pt denies pain now. Pt has alzheimers. Historical: - Allergies: 16:24 No Known Allergies; iw - Home Meds: 16:47 losartan Oral [Active]; eh3 - PMHx: 16:24 Hypertension; Dementia; iw 16:25 Anxiety; Alzheimer's disease; iw - Immunization history:: Last tetanus immunization: unknown. - Social history:: Smoking status: . ROS: 18:23 Constitutional: Negative for fever, chills, and weight loss. kb 18:23 Back: Positive for pain with movement, of the sacrum. 18:23 Skin: Positive for hematoma, of the back of head. 18:23 All other systems are negative. Exam: 18:23 Constitutional: This is a well developed, well nourished patient who is awake, alert, kb and in no acute distress. Eyes: Pupils equal round and reactive to light, extra-ocular motions intact. Lids and lashes normal. Conjunctiva and sclera are non-icteric and not injected. Cornea within normal limits. Periorbital areas with no swelling, redness, or edema. Chest/axilla: Normal chest wall appearance and motion. Cardiovascular: Regular rate and rhythm with a normal S1 and S2. No gallops, murmurs, or rubs. No pulse deficits. Respiratory: Respirations even and unlabored. No increased work of breathing. Talking in full sentences Abdomen/GI: Soft, non-tender. No distention Back: No spinal tenderness. No costovertebral tenderness. Full range of motion. MS/ Extremity: Pulses equal, no cyanosis. Neurovascular intact. Full, normal range of motion. Psych: Awake, alert, with orientation to person, place and time. Behavior, mood, and affect are within normal limits. 18:23 Head/face: Noted is no obvious of injury or deformity except hematoma, that is moderate, of the back of head. 18:23 Skin: injury, abrasion(s), very small abrasion noted, of the back of head, hematoma to back of head. 18:23 Neuro: Exam negative for acute changes. Vital Signs: 16:25 BP 128 / 88; Pulse 66; Resp 16; Temp 97.8(O); Pulse Ox 100% on R/A; Weight 65.77 kg; iw Height 5 ft. 9 in. (175.26 cm); 17:04 BP 139 / 64; Pulse 66; Resp 16; Pulse Ox 100% on R/A; eh3 18:00 BP 162 / 60; Pulse 54; Resp 16; Pulse Ox 100% on R/A; eh3 16:25 Body Mass Index 21.41 (65.77 kg, 175.26 cm) iw MDM: 16:18 Patient medically screened. kb 18:22 Differential diagnosis: closed head injury, contusion, laceration. Data reviewed: vital kb signs, nurses notes. I considered the following discharge prescriptions or medication management in the emergency department Pain Medications: At this time, prescription pain medications are not recommended. Test considered but Not performed: Other Details CT, pelvis x-ray, but pt is ambulatory without pain to pelvis or hips. Historians other than the Patient: Daughter/Son: daughter. Counseling: I had a detailed discussion with the patient and/or guardian regarding: the historical points, exam findings, and any diagnostic results supporting the discharge/admit diagnosis, radiology results, the need for outpatient follow up, a family practitioner, to return to the emergency department if symptoms worsen or persist or if there are any questions or concerns that arise at home. 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 Exp: eh3 11/25/2022. Lot #: [id number]. } Route: IM; Site: left deltoid; 17:26 Follow up: Response: (VIS) Vaccine information sheet provided today. Questions and/or 3 concerns addressed. VIS edition date: Dec 17, 2020.; No adverse reaction Disposition: 06/01 12:33 Co-signature as Attending Physician, Cristino Sanchez MD I agree with the assessment and kdr plan of care. Disposition Summary: 05/31/22 18:03 Discharge Ordered Location: Home kb Condition: Stable kb Diagnosis - Oblique fracture of sacrum kb - Unspecified injury of head, initial encounter kb - Fall on same level from slipping, tripping and stumbling without subsequent kb striking against object Followup: kb - With: Emergency Department - When: As needed - Reason: Worsening of condition Followup: kb - With: Private Physician - When: 2 - 3 days - Reason: Recheck today's complaints, Continuance of care, Re-evaluation by your physician Discharge Instructions: - Discharge Summary Sheet kb - Hematoma, [id number] kb - Head Injury, Adult, [id number] kb - Tailbone Injury, [id number] kb Forms: - Medication Reconciliation Form kb - Thank You Letter kb - Antibiotic Education kb - Prescription Opioid Use kb Signatures: Dispatcher [employer] EDMS Mell Canela, CRYSTAL FLAT GRINDER-C [employer]AT GR[employer]ER-Cristino Ann MD MD kdr Elsie Dewey, RN RN Judi Gallego RN RN 3
[2022-05-31 18:24] VITALS: TEMP 97.8; O2SAT 100
[2022-05-31 18:26] VITALS: BP 162/60
== END 2022-05-31 18:20 | disposition home or self-care (01) ==
LOC: ER 16:15
DX: S32.19XA Other fracture of sacrum, initial encounter for closed fracture (principal); S01.81XA Laceration without foreign body of other part of head, initial encounter; W01.0XXA Fall on same level from slipping, tripping and stumbling without subsequent striking against object, initial encounter; I10 Essential (primary) hypertension; G30.9 Alzheimer's disease, unspecified; F02.80 Dementia in other diseases classified elsewhere, unspecified severity, without behavioral disturbance, psychotic disturbance, mood disturbance, and anxiety; Z23 Encounter for immunization
CPT/HCPCS: 70450; 72125; 72220; 90471; 99284

== ENCOUNTER 2022-06-20 11:16 | Emergency (ER) | payer OTHER ==
--- OUTSIDE RECORDS SUMMARY | 2022-06-20 11:21 | XMS REPORT | Continuity of Care Document ---
:1940 Author Organization [facility] t Address [address] [place] [address] Care Team Providers Name Role Phone Eda DUTTA, Alex Sprague Primary Care Physician [phone] Nikko Vazquez Attending Clinician Unavailable Payers Payer Name Policy Type Policy Number Effective Date Expiration Date S mikla HUMANA MEDICARE C1 [id number] 2020 Common [facility] PPO 00:00:[address] - [facility] HUMANA MEDICARE C1 [id number] 2020 Common Sp [facility] PPO 00:00:[address] - [facility] HUMANA MEDICARE C1 [id number] 2020 Common Sp [place] PPO 00:00:00 - [facility] MEDICARE C1 [id number] 2020 Common Sp mar[place] PPO 00:00:[address] - [facility] HUMANA MEDICARE C1 [id number] 2020 Common Sp marino PPO 00:00:00 - [facility] Problems Condition Condition Condition Status Onset Resolution Last Treating Co mments Source Name Details Category Date Date Treatment Clinician Date [id number] 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 unspecifie Medica l d dementia Center type [id number] JAH Problem Common (generaliz Spirit ed anxiety - CHI disorder) [facility] Hyperlipid Hyperlipid Problem C ommon emia emia Spirit - [facility] [id number] Balanitis Problem Comm on Spirit - [facility] [id number] Urinary Problem Common tract Spirit infection - [facility]I without St hematuria, [facility] site Medical unspecifie Center d [id number] Allergic Problem Commo n rhinitis, Spirit unspecifie - CHI d St seasonalit [facility] y, Medical unspecifie Center d trigger Allergies, Adverse Reactions, Alerts This patient has no known allergies or adverse reactions. Family History Family Member Diagnosis Comments Start Date Stop Date Source Natural brother [facility] Natural father Heart failure [facility] Natural father Stroke [facility] Natural mother Cerebral aneurysm [facility] Natural mother Heart attack [facility] Social History Social Habit Start Date Stop Date Quantity Comments Source History of Common Spirit - Tobacco Use [facility] Alcohol intake 2016-05-26 2016-05-26 Current Zoroastrian 00:00:00 00:00:00 non-drinker of Hospital alcohol (finding) Tobacco use and 2016-04-21 2016-04-21 Smokeless tobacco Me [facility] exposure 00:00:00 00:00:00 non-user Hospital Sex Assigned At [birth year] Zoroastrian 00:00:00 00:00:00 Hospital Smoking Status Start Date Stop Date Source Former Smoker 2022-03-17 00:00:00 2022-03-17 00:00:00 Common S pirit - [facility] Medications Ordered Filled Start Stop Current Ordering Indication Dosage Frequency Signature Comments Components Source Medication Medication Date Date Medication? Clinician (SIG) Name Name FLUoxetine FLUoxetine No 1{table QD FLUoxetine HCl 10 MG HCl 10 MG 7-02 t} HCl 10 MG 00:00: 00 losartan 2015-05 Yes 25mg QD Take 25 mg Met hodi (COZAAR) 25 2-[address] MG tablet 12:45: daily. Hospit a 04 l red yeast 2015-05 Yes 600mg QD Take 600 Met [facility]odi rice 600 mg 2-[address] capsule 12:45: mouth Hospita 04 daily. l losartan 2015-05 Yes 25mg QD Take 25 mg Met hodi (COZAAR) 25 2-[address] MG tablet 12:45: daily. Hospit a 04 l red yeast 2015-05 Yes 600mg QD Take 600 Met hodi rice 600 mg 2-[address] capsule 12:45: mouth Hospita 04 daily. l Furosemide Furosemide No QD Furosemide 20 MG [...] No Vitamin E Prostate Prostate No Prostate [facility] Lisinopril Lisinopril No 1{table QD Lisinopril [...] 40 MG 40 MG Prostate Prostate No [facility] Krill Oil Krill Oil No Krill [...] No Vitamin E Prostate Prostate No Prostate [facility] Health Apple Cider Apple Cider No Apple [...] Prostate Prostate No Prostate Health Health Health Apple Cider Apple Cider No Apple [...] 5-120 MG 5-120 MG eded} 5-120 MG Vital Signs Vital Name Observation Time Observation Value Comments Source height 2022-03-17 08:10:00 69 [in_i] Common S pirit [facility] weight 2022-03-17 08:10:00 167.5 [lb_av] Common Spirit - [facility] temperature 2022-03-17 08:10:00 97.5 [degF] Common S pirit [facility] bmi 2022-03-17 08:10:00 24.73 kg/m2 Common S [facility] oximetry 2022-03-17 08:10:00 98 % Common [facility] respiratory rate 2022-03-17 08:10:00 18 /min Comm on [facility] blood pressure 2022-03-17 08:10:00 124 mm[Hg] Common [facility] - systolic [facility] blood pressure 2022-03-17 08:10:00 51 mm[Hg] Common [facility] - diastolic [facility] height 2021-11-18 10:00:00 69 [in_i] Common [facility] weight 2021-11-18 10:00:00 172.4 [lb_av] [facility] temperature 2021-11-18 10:00:00 98.4 [degF] Common S [facility] bmi 2021-11-18 10:00:00 25.46 kg/m2 [facility] oximetry 2021-11-18 10:00:00 94 % [facility] respiratory rate 2021-11-18 10:00:00 16 /min Comm on [facility] blood pressure 2021-11-18 10:00:00 135 mm[Hg] Common [facility] - systolic [facility] blood pressure 2021-11-18 10:00:00 62 mm[Hg] Common [facility] - diastolic [facility] height 2021-11-18 10:10:00 69 [in_i] Common S [facility] weight 2021-11-18 10:10:00 172.4 [lb_av] Common [facility] temperature 2021-11-18 10:10:00 98.4 [degF] [facility] bmi 2021-11-18 10:10:00 25.46 kg/m2 [facility] oximetry 2021-11-18 10:10:00 95 % Common S [facility] respiratory rate 2021-11-18 10:10:00 16 /min Comm on [facility] blood pressure 2021-11-18 10:10:00 135 mm[Hg] Common [facility] - systolic [facility] blood pressure 2021-11-18 10:10:00 62 mm[Hg] Common [facility] - diastolic [facility] height 2021-07-19 10:50:00 69 [in_i] Common S [facility] weight 2021-07-19 10:50:00 171.3 [lb_av] [facility] temperature 2021-07-19 10:50:00 98.4 [degF] [facility] bmi 2021-07-19 10:50:00 25.29 kg/m2 [facility] S [facility] oximetry 2021-07-19 10:50:00 98 % [facility] respiratory rate 2021-07-19 10:50:00 16 /min Comm on [facility] blood pressure 2021-07-19 10:50:00 132 mm[Hg] Common [facility] - systolic [facility] blood pressure 2021-07-19 10:50:00 67 mm[Hg] Common [facility] - diastolic [facility] height 2021-02-22 13:20:00 69 [in_i] [facility] weight 2021-02-22 13:20:00 186.7 [lb_av] [facility] temperature 2021-02-22 13:20:00 98.1 [degF] Common S [facility] bmi 2021-02-22 13:20:00 27.57 kg/m2 [facility] oximetry 2021-02-22 13:20:00 95 % [facility] S [facility] respiratory rate 2021-02-22 13:20:00 17 /min Comm on [facility] blood pressure 2021-02-22 13:20:00 135 mm[Hg] Common [facility] - systolic [facility] blood pressure 2021-02-22 13:20:00 75 mm[Hg] [facility] - diastolic [facility] height 2020-12-14 13:20:00 69 [in_i] [facility] weight 2020-12-14 13:20:00 191.7 [lb_av] [facility] temperature 2020-12-14 13:20:00 98.4 [degF] [facility] bmi 2020-12-14 13:20:00 28.31 kg/m2 [facility] oximetry 2020-12-14 13:20:00 97 % [facility] respiratory rate 2020-12-14 13:20:00 16 /min Comm on [facility] blood pressure 2020-12-14 13:20:00 132 mm[Hg] [facility] systolic [facility] blood pressure 2020-12-14 13:20:00 72 mm[Hg] [facility] diastolic [facility] Procedures This patient has no known procedures. Plan of Care Planned Activity Planned Date Details Comments Source Future Scheduled 2022-04-28 SHINGLES VACCINES (1 Met [facility] Test 18:17:55 of 2) [code = SHINGLES VACCINES (1 of 2)] Future Scheduled 2022-04-28 65+ [facility]CCAL [facility] 18:17:55 VACCINE (1 - PCV) [code = 65+ PNEUMOCOCCAL VACCINE (1 - PCV)] Future Scheduled 2022-04-28 INFLUENZA VACCINE Method [facility] Test 18:17:55 [code = INFLUENZA VACCINE] Future Scheduled 2022-04-28 COVID-19 VACCINE (#1) Me [facility] Test 18:17:55 [code = COVID-19 VACCINE (#1)] Future Scheduled 2022-04-28 SHINGLES VACCINES (1 Met [facility] Test 18:17:55 of 2) [code = SHINGLES VACCINES (1 of 2)] Future Scheduled 2022-04-28 65+ [facility]OCO[facility] [facility] Test 18:17:55 VACCINE (1 - PCV) [code = 65+ PNEUMOCOCCAL VACCINE (1 - PCV)] Future Scheduled 2022-04-28 INFLUENZA VACCINE [facility] Test 18:17:55 [code = INFLUENZA VACCINE] Future Scheduled 2022-04-28 COVID-19 VACCINE (#1) Me [facility] Test 18:17:55 [code = COVID-19 VACCINE (#1)] Encounters Start End Encounter Admission Attending Care Care Encounter Source Date/Time Date/Time Type Type Clinicians Facility Department ID 2022-03-15 Outpatient Vazquez, [facility] [id number] Common 10:15:04 Nikko [id number] [facility] 2022-03-10 Outpatient Vazquez, STLC [facility] [id number] Common 08:46:03 Nikko [id number] [facility] 2021-06-08 [facility], [facility] [id number] Common 13:58:43 Nikko [id number] [facility] 2021-06-08 Outpatient Vazquez, STLC [facility] [id number] Common 13:33:51 Nikko 02443 [facility] 2021-06-08 Outpatient Vazquez, STLC [facility] [id number] Common 13:33:22 Nikko [id number] [facility] 2021-06-08 Outpatient Vazquez, [facility] STLC [id number] Common 13:19:40 Nikko [id number] [facility] 2021-06-08 Out[facility], [facility] [id number] Common 12:45:14 Nikko [id number] [facility] 2021-06-08 Out[facility]az[facility], [facility] [id number] Common 12:26:05 Nikko [id number] [facility] 2022-03-17 2022-03-17 [id number] Co mmon 00:00:00 00:00:00 VISIT [facility] LEVEL 4 [facility] 2021-11-18 2021-11-18 OFFICE STLMLC STLMLC [id number] Co mmon 00:00:00 00:00:00 VISIT Spirit ESTAB PT - CHI LEVEL 4 [facility] 2021-11-18 2021-11-18 SUB ANNUAL STLMLC STLMLC [id number] Common 00:00:00 00:00:00 MCR [facility] WELLNESS - CHI VISIT [facility] 2021-07-19 2021-07-19 OFFICE STLMLC STLMLC [id number] Co mmon 00:00:00 00:00:00 VISIT [facility] ESTAB PT - CHI LEVEL 4 [facility] 2021-02-23 2021-02-23 (TEL) STLMLC STLMLC [id number] Co mmon 00:00:00 00:00:00 [facility] 2021-02-22 2021-02-22 OFFICE STLMLC STLMLC [id number] Co mmon 00:00:00 00:00:00 VISIT [facility] PT - CHI LEVEL 4 [facility] 2021-02-09 2021-02-09 (TEL) STLMLC STLMLC [id number] Co mmon 00:00:00 00:00:00 [facility] 2020-12-14 2020-12-14 OFFICE STLMLC STLMLC [id number] Co mmon 00:00:00 00:00:00 VISIT [facility] ESTAB PT - CHI LEVEL 4 [facility] 2020-11-22 2020-11-22 (TEL) STLMLC STLMLC [id number] Co mmon 00:00:00 00:00:00 [facility] 2020-11-12 2020-11-12 Outpatient STLMLC STLMLC [id number] Common 00:00:00 00:00:00 [facility] 2020-08-24 2020-08-24 Outpatient STLMLC STL[facility]C [id number] Common 00:00:00 00:00:00 [facility] 2020-08-09 2020-08-09 Outpatient STLMLC STLMLC [id number] Common 00:00:00 00:00:00 [facility] 2020-08-09 2020-08-09 Outpatient STLMLC STLMLC [id number] Common 00:00:00 00:00:00 [facility] 2020-06-09 2020-06-09 Outpatient [facility] [id number] Common 00:00:00 00:00:00 [facility] Results This patient has no known results.
[2022-06-20 11:48] LABS: Absolute Lymphocytes (CBC) 1.6 K/uL (0.7-4.9); Hematocrit 37.3 % (39.6-49.0); Lymphocytes % 20.6 % (15.3-44.8); MCV 90.5 fL (80-100); MPV 6.7 fL (7.6-11.3); RBC Red Blood Cell Count 4.12 M/uL (4.33-5.43)
[2022-06-20 12:09] LABS: Albumin 3.4 g/dL (3.4-5.0); Bilirubin Direct 0.2 mg/dL (0-0.2); Bilirubin Total 0.5 mg/dL (0.2-1.0); Magnesium 2.4 mg/dL (1.6-2.4); Potassium 3.9 mmol/L (3.5-5.1); Protein, Total 6.7 g/dL (6.4-8.2); Troponin High Sensitivity 14.6 pg/mL (<58.9)
[2022-06-20 12:11] LABS: SARS-CoV-2 Antigen Rapid Res Negative (Negative)
[2022-06-20 12:38] LABS: Protime INR 0.97
--- NOTE | 2022-06-20 12:48 | RAD REPORT ---
EXAM DESCRIPTION: RAD - Chest Single View - 06/20/2022 12:12 pm CLINICAL HISTORY: ams, chest pain Chest pain. COMPARISON: Chest Single View dated 03/26/2019; CHEST PA AND LAT 2 VIEW dated 12/31/2013 FINDINGS: Portable technique limits examination quality. The lungs are grossly clear. The heart is normal in size. No displaced fractures. IMPRESSION: No acute intrathoracic process suspected.
--- NOTE | 2022-06-20 13:03 | RAD REPORT ---
EXAM DESCRIPTION: CT - Head Brain Wo Cont - 06/20/2022 12:55 pm CLINICAL HISTORY: ams Headache, drowsiness, alteration of awareness. COMPARISON: Head Brain Wo Cont dated 03/26/2019 TECHNIQUE: All CT scans are performed using dose optimization technique as appropriate and may inclu de automated exposure control or mA/KV adjustment according to patient size. FINDINGS: No intracranial hemorrhage, hydrocephalus or extra-axial fluid collection.Moderate diffuse brain atrophy.No areas of brain edema or evidence of midline shift. The paranasal sinuses and mastoids are clear. The calvarium is intact. IMPRESSION: No acute intracranial abnormality.
--- NOTE | 2022-06-20 13:28 | ER ---
Nurse's Notes [facility] Name: Jake Silva Age: 82 yrs Sex: Male : 1940 Arrival Date: 06/20/2022 Time: 11:18 Bed 3 Private MD: Nikko Vazquez Diagnosis: Chest pain, unspecified Presentation: 06/20 11:31 Chief complaint: Patient states: arrival to ER not responding, unable to talk. ld1 reports pt being in car at 1100 and he stopped talking, was unable to move. During triage pt began talking again and said "Wow, now I can talk." AAOx4. Denies pain at this time. reports pt stating he had chest pain - reason they were on the way to ER. Coronavirus screen: At this time, the client does not indicate any symptoms associated with coronavirus-19. Ebola Screen: No symptoms or risks identified at this time. No acute neurological deficit is noted. The patients blood glucose was checked before arriving to the hospital and was found to be normal. Initial Sepsis Screen: Does the patient meet any 2 criteria? No. Patient's initial sepsis screen is negative. Does the patient have a suspected source of infection? No. Patient's initial sepsis screen is negative. Risk Assessment: Do you want to hurt yourself or someone else? Patient reports no desire to harm self or others. Onset of symptoms was June 20, 2022. 11:31 Method Of Arrival: Wheelchair ld1 11:31 Acuity: AKILA 2 ld1 Triage Assessment: 11:33 The onset of the patients symptoms was June 20, 2022 at 11:00. General: Appears in ld1 no apparent distress. comfortable, Behavior is calm, cooperative. Pain: Complains of pain in chest Pain does not radiate. Pain currently is 0 out of 10 on a pain scale. EENT: No signs and/or symptoms were reported regarding the EENT system. Neuro: Level of Consciousness is awake, confused, Oriented to person, place, time, situation, Pt alert and oriented - 5 seconds later pt is AAOX0. Neuro: Reports dizziness. Cardiovascular: Capillary refill < 3 seconds Patient's skin is warm and dry. Respiratory: Airway is patent Respiratory effort is even, unlabored. GI: Abdomen is flat, non-distended. : No signs and/or symptoms were reported regarding the genitourinary system. Derm: No signs and/or symptoms reported regarding the dermatologic system. Musculoskeletal: No signs and/or symptoms reported regarding the musculoskeletal system. Historical: - Allergies: 11:33 No Known Allergies; ld1 - PMHx: 11:33 Alzheimer's disease; Anxiety; Dementia; Hypertension; ld1 - PSHx: 11:33 None; ld1 - Immunization history:: Adult Immunizations up to date, Client reports receiving the 2nd dose of the Covid vaccine. - Social history:: Smoking status: Patient denies any tobacco usage or history of. Patient/guardian denies using alcohol. Screenin:42 [facility] ED Fall Risk Assessment (Adult) History of falling in the last 3 months, ko1 including since admission No falls in past 3 months (0 pts) Confusion or Disorientation Yes (5 pts) Intoxicated or Sedated No (0 pts) Impaired Gait Yes (1 pt) Mobility Assist Device Used Yes (1 pt) Altered Elimination No (0 pt) Score/Fall Risk Level 3 or more points = High Risk Oriented to surroundings, Maintained a safe environment, Educated pt \\T\\ family on fall prevention, incl call for assistance when getting out of bed, Assessed \\T\\ reinforced patient's understanding of fall precautions, Provided non-skid footwear, Hourly rounding (assess needs \\T\\ fall precautionary measures) done, Used ambulatory aids as needed (educated on \\T\\ assisted with), Used gait belt as appropriate Implemented a Fall Risk Plan of Care, Apply high fall risk patient identification: yellow non skid footwear/ fall signage, Remained w/in arm's length of patient and in sight while toileting, Offered frequent toileting (1:1 observation), Remained with patient while ambulating, Utilized family, sitter, or virtual gyroscopic instrument tester as indicated. Abuse screen: Denies threats or abuse. Denies injuries from another. Nutritional screening: No deficits noted. Tuberculosis screening: No symptoms or risk factors identified. Assessment: 12:22 VAN Scoring: Arm Drift: Patients demonstrates NO arm weakness. Patient is VAN Negative. ko1 Visual Disturbance: No visual disturbance noted. Aphasia: No aphasia noted. Neglect: No neglect noted. 14:29 The patient has not been NPO before screening. The patient is currently on the ko1 following diet: REG The patient is alert, and able to follow commands. The patient does not exhibit slurred or garbled speech. The patient is not exhibiting difficulty speaking. The patient does not exhibit difficulty understanding words. The patient is able to swallow own secretions with no drooling or need for suction. Patient tolerated one teaspoon of water. No drooling, immediate coughing, gurgling, or clearing of the throat was noted. The patient tolerated 90mL of water. No drooling, immediate coughing, gurgling, or clearing of the throat was noted. The patient passed the bedside swallow screening. Oral medications may be given as ordered. Contact Physician for further diet orders. TNKase (Tenecteplase) Screening: Indications:. Vital Signs: 11:31 BP 176 / 49; Pulse 48; Resp 18; Temp 98.3; Pulse Ox 100% on R/A; Pain 0/10; ld1 11:42 BP 176 / 52; Pulse 49; Resp 20; Pulse Ox 100% on R/A; Weight 81.65 kg; Height 5 ft. 10 ko1 in. (177.80 cm); 12:07 BP 178 / 54; Pulse 49; Resp 14; Pulse Ox 99% ; ko1 12:21 BP 174 / 52; Pulse 49; Resp 16; Pulse Ox 100% ; ko1 11:42 Body Mass Index 25.83 (81.65 kg, 177.80 cm) ko1 NIH Stroke Scale Scores: 14:29 NIHSS Score: 2 ko1 ED Course: 11:18 Patient arrived in ED. rg4 11:18 Nikko Vazquez DO is Private Physician. rg4 11:21 Connor Rosales PA is PHCP. [facility] 11:22 Maurizio Jensen DO is Attending Physician. jm 11:33 Triage completed. ld1 11:35 Arm band placed on right wrist. EKG completed in triage. Results shown to MD. ld1 11:38 Sandra Robertson, RN is Primary Nurse. ko1 11:41 Basic Metabolic Panel Sent. ko1 11:41 CBC with Diff Sent. ko1 11:41 LFT's Sent. ko1 11:41 Magnesium Sent. ko1 11:41 NT PRO-BNP Sent. ko1 11:41 PT-INR Sent. ko1 11:41 SARS RAPID Sent. ko1 11:41 Troponin HS Sent. ko1 11:42 Patient has correct armband on for positive identification. Fall risk band placed. ko1 Placed in gown. Bed in low position. Call light in reach. Side rails up X2. Adult w/ patient. Client placed on continuous cardiac and pulse oximetry monitoring. NIBP monitoring applied. nurse monitoring on. 11:42 Initial lab(s) drawn, by ED staff, sent to lab. Inserted saline lock: 20 gauge in right ko1 antecubital area, using aseptic technique. Blood collected. 12:10 SARS RAPID Sent. bd 12:14 XRAY Chest (1 view) In Process Unspecified. EDMS 12:[address] via stretcher. ko1 12:56 CT Head Brain wo Cont In Process Unspecified. EDMS 13:27 Blake Simms is Hospitalizing Provider. jmm 14:04 Nikko Vazquez DO is Referral Physician. jmm 14:19 No provider procedures requiring assistance completed. IV discontinued, intact, ko1 bleeding controlled, No redness/swelling at site. Pressure dressing applied. Administered Medications: No medications were administered Medication: 14:19 VIS not applicable for this client. ko1 Point of Care Testing: Blood Glucose: 11:33 Blood Glucose: 100 mg/dL; ld1 Ranges: Outcome: 13:27 Decision to Hospitalize by Provider. jm 14:04 Discharge ordered by . jm 14:19 Discharged to home via wheelchair, with family. ko1 14:19 Condition: good 14:19 Discharge instructions given to patient, family, Instructed on discharge instructions, follow up and referral plans. Demonstrated understanding of instructions, follow-up care. 14:31 Patient left the ED. ko1 NIH Stroke Scale - NIH Stroke Score Date: 06/20/2022 Time: 14:29 Total Score = 2 1a. Level of Consciousness (LOC) - 0(Alert) 1b. Level of Consciousness (LOC) (Month \\T\\ Age) - 2(Neither) 1c. LOC Commands (Open \\T\\ Closes Eyes/Asphalt Spreader Operator) - 0(Both) 2. Best Gaze (Lateral Gaze Paresis) - 0(Normal) 3. Visual Field Loss - 0(No visual loss) 4. Facial Palsy - 0(Normal) 5a. Left Arm: Motor (10-second hold) - 0(No drift) 5b. Right Arm: Motor (10-second hold) - 0(No drift) 6a. Left Leg: Motor (5-second hold - always test supine) - 0(No drift) 6b. Right Leg: Motor (5-second hold - always test supine) - 0(No drift) 7. Limb Ataxia (finger/nose \\T\\ heel/rivas - test with eyes open) - 0(Absent) 8. Sensory Loss (pinprick arms/legs/face) - 0(Normal) 9. Best Language: Aphasia (description/naming/reading) - 0(No aphasia) 10. Dysarthria (speech clarity - read or repeat words) - 0(Normal) 11. Extinction and Inattention (visual/tactile/auditory/spatial/personal) - 0(No abnormality) Initials: ko1 Signatures: Dispatcher [employer] Mariela Woodson Joel, PA PA jmm Garcia, Rubi rg4 Nicole Lora RN RN ld1 Sandra Robertson RN RN ko1
--- NOTE | 2022-06-20 13:28 | EDPHYS ---
Physician Documentation [facility] Name: Jake Silva Age: 82 yrs Sex: Male : 1940 Arrival Date: 06/20/2022 Time: 11:18 Bed 3 Private MD: George [facility] ED Physician Maurizio Jensen HPI: 06/20 11:37 This 82 yrs old Male presents to ER via Wheelchair with complaints of Weakness, jmm Dizziness, Chest Pain. 11:37 The patient presents to the emergency department with weakness of the. Onset: The jmm symptoms/episode began/occurred acutely, just prior to arrival. This is an 82-year-old male with history of Alzheimer's, dementia, hypertension the presents emerged department with complaints of chest pain at approximately 11 AM. stated that the patient was having difficulty staying awake. Denies any unilateral weakness or slurred speech.. Historical: - Allergies: 11:33 No Known Allergies; ld1 - PMHx: 11:33 Alzheimer's disease; Anxiety; Dementia; Hypertension; ld1 - PSHx: 11:33 None; ld1 - Immunization history:: Adult Immunizations up to date, Client reports receiving the 2nd dose of the Covid vaccine. - Social history:: Smoking status: Patient denies any tobacco usage or history of. Patient/guardian denies using alcohol. ROS: 11:37 Constitutional: Negative for fever, chills, and weight loss, Respiratory: Negative for jmm shortness of breath, cough, wheezing, and pleuritic chest pain. 11:37 Cardiovascular: Positive for chest pain. 11:37 Neuro: Positive for altered mental status, weakness. 11:37 All other systems are negative. Exam: 11:37 Head/Face: atraumatic. Eyes: EOMI, no conjunctival erythema appreciated ENT: Moist jmm Mucus Membranes Neck: Trachea midline, Supple Chest/axilla: Normal chest wall appearance and motion. Cardiovascular: Regular rate and rhythm. No edema appreciated Respiratory: Normal respirations, no respiratory distress appreciated Abdomen/GI: Non distended Back: Normal ROM Skin: General appearance color normal 11:37 Constitutional: The patient appears listless. 11:37 Musculoskeletal/extremity: Bilateral arm weakness. 11:37 Skin: Appearance: Color: normal in color. 11:37 Neuro: Orientation: is normal, Mentation: is normal. 11:37 Psych: Behavior/mood is pleasant, cooperative. Vital Signs: 11:31 BP 176 / 49; Pulse 48; Resp 18; Temp 98.3; Pulse Ox 100% on R/A; Pain 0/10; ld1 11:42 BP 176 / 52; Pulse 49; Resp 20; Pulse Ox 100% on R/A; Weight 81.65 kg; Height 5 ft. 10 ko1 in. (177.80 cm); 12:07 BP 178 / 54; Pulse 49; Resp 14; Pulse Ox 99% ; ko1 12:21 BP 174 / 52; Pulse 49; Resp 16; Pulse Ox 100% ; ko1 11:42 Body Mass Index 25.83 (81.65 kg, 177.80 cm) ko1 NIH Stroke Scale Scores: 14:29 NIHSS Score: 2 ko1 MDM: 11:29 Patient medically screened. [facility] 13:25 Data reviewed: vital signs, nurses notes. Management of patient was discussed with the [facility] following: Dr. Jensen. Independent interpretation of the following test(s) in the Emergency Department X-Ray: My interpretation is No infiltrate appreciated. Historians other than the Patient: . Counseling: I had a detailed discussion with the patient and/or guardian regarding: the historical points, exam findings, and any diagnostic results supporting the discharge/admit diagnosis, lab results, the need for further work-up and treatment in the hospital. ED course: Upon initial evaluation patient was somnolent with difficulty arousing, both arms were equally weak. Approximately 2 to 3 minutes later the patient was completely alert and in no apparent distress. A similar episode happened 1 other time in triage. Patient is currently alert and in no apparent distress. Dr. Maurizio Jensen was at bedside for further evaluation. 14:03 ED course: Patient does not want to stay in the ER or be admitted. Patient is currently [facility] alert and orient x3. Appears to be able to make rational decisions. Patient is aware that he could possibly have a life-threatening condition. . 06/20 11:30 Order name: Basic Metabolic Panel; Complete Time: 12:11 [facility] 06/20 11:30 Order name: CBC with Diff; Complete Time: 12:11 [facility] 06/20 11:30 Order name: LFT's; Complete Time: 12:11 [facility] 06/20 11:30 Order name: Magnesium; Complete Time: 12:11 [facility] 06/20 11:30 Order name: NT PRO-BNP; Complete Time: 12:11 [facility] 06/20 11:30 Order name: PT-INR; Complete Time: 12:39 [facility] 06/20 11:30 Order name: Troponin HS; Complete Time: 12:11 [facility] 06/20 11:30 Order name: XRAY Chest (1 view); Complete Time: 13:06 [facility] 06/20 11:30 Order name: EKG; Complete Time: 11:30 [facility] 06/20 11:30 Order name: Cardiac monitoring; Complete Time: 11:39 [facility] 06/20 11:30 Order name: EKG - Nurse/Tech; Complete Time: 11:30 [facility] 06/20 11:33 Order name: SARS RAPID; Complete Time: 12:11 [facility] 06/20 11:40 Order name: Glucose, Ancillary Testing; Complete Time: 12:11 [facility] 06/20 12:41 Order name: CT Head Brain wo Cont; Complete Time: 13:06 [facility] 06/20 11:30 Order name: IV Saline Lock; Complete Time: 11:40 [facility] 06/20 11:30 Order name: Labs collected and sent; Complete Time: 11:41 [facility] 06/20 11:30 Order name: O2 Per Protocol; Complete Time: 11:30 [facility] 06/20 11:30 Order name: O2 Sat Monitoring; Complete Time: 11:30 [facility] 06/20 11:31 Order name: Accucheck; Complete Time: 11:31 ld1 Administered Medications: No medications were administered Point of Care Testing: Blood Glucose: 11:33 Blood Glucose: 100 mg/dL; ld1 Ranges: Critical Glucose Levels:Adult <50 mg/dl or >400 mg/dl <40 mg/dl or >180 mg/dl Disposition: 11:37 PA/ENERGY CONSERVATION REPRESENTATIVE's history reviewed, patient interviewed, and examined. HPI: 82-year-old male with ms3 past medical history of Alzheimer's, anxiety, hypertension presents for chest pain and generalized weakness that began 30 minutes prior to arrival. In triage patient had intermittent episodes of becoming unresponsive. My personal exam of patient reveals: On exam initially patient tends not responding. Patient then awoke stating he did not know what it happened. Patient is alert, in no apparent distress, nontoxic-appearing. Heart rate is bradycardic, without murmurs rubs or gallops. Lungs are clear to auscultation bilaterally. Abdomen is nontender to palpation. Skin is dry and without rashes. Discussed case with DOMINGA Callahan, and agree with plan. 18:11 I reviewed the patient's care provided by Advanced Practice Provider \T\ agree w/ the ms3 diagnosis \T\ care plan. I personally saw the pt \T\ performed a substantive portion of the visit, incldng all aspects of the (History/Exam/Medical Decision Making). Disposition Summary: 06/20/22 14:04 Discharge Ordered Location: Home(06/20/22 14:04) [facility] Condition: Stable(06/20/22 14:04) [facility] Diagnosis - Chest pain, unspecified jm Followup: [facility] - With: Nikko Vazquez DO - When: Tomorrow - Reason: Recheck today's complaints, Continuance of care, Re-evaluation by your physician Discharge Instructions: - Discharge Summary Sheet [facility] - Nonspecific Chest Pain, Adult [facility] Forms: - Medication Reconciliation Form [facility] - Thank You Letter [facility] - Antibiotic Education [facility] - Prescription Opioid Use [facility] NIH Stroke Scale - NIH Stroke Score Date: 06/20/2022 Time: 14:29 Total Score = 2 1a. Level of Consciousness (LOC) - 0(Alert) 1b. Level of Consciousness (LOC) (Month \T\ Age) - 2(Neither) 1c. LOC Commands (Open \T\ Closes Eyes/Cost Manager) - 0(Both) 2. Best Gaze (Lateral Gaze Paresis) - 0(Normal) 3. Visual Field Loss - 0(No visual loss) 4. Facial Palsy - 0(Normal) 5a. Left Arm: Motor (10-second hold) - 0(No drift) 5b. Right Arm: Motor (10-second hold) - 0(No drift) 6a. Left Leg: Motor (5-second hold - always test supine) - 0(No drift) 6b. Right Leg: Motor (5-second hold - always test supine) - 0(No drift) 7. Limb Ataxia (finger/nose \T\ heel/rivas - test with eyes open) - 0(Absent) 8. Sensory Loss (pinprick arms/legs/face) - 0(Normal) 9. Best Language: Aphasia (description/naming/reading) - 0(No aphasia) 10. Dysarthria (speech clarity - read or repeat words) - 0(Normal) 11. Extinction and Inattention (visual/tactile/auditory/spatial/personal) - 0(No abnormality) Initials: ko1 Signatures: Dispatcher [employer] EDMS Connor Rosales PA PA jmm Sims, Marcus, DO DO ms3 Nicole Lora RN RN ld1 Corrections: (The following items were deleted from the chart) 14:02 13:27 Observation [facility] 14:02 13:27 Blake Simms [facility] 14:02 13:27 Telemetry/MedSurg (observation) [facility] 14:02 13:27 Stable [facility] 14:02 13:27 new [facility] 14:02 13:27 are unchanged [facility] 14:02 13:27 Standard [facility] 14:02 13:27 [facility] 14:02 13:27 Chest Pain [facility] 14:02 13:27 Altered Mental Status [facility]
[2022-06-20 14:55] VITALS: TEMP 98.3
[2022-06-20 14:59] VITALS: BP 174/52; O2SAT 100
== END 2022-06-20 14:31 | disposition home or self-care (01) ==
LOC: ER 11:16
DX: R07.89 Other chest pain (principal); R53.1 Weakness; I10 Essential (primary) hypertension; G30.9 Alzheimer's disease, unspecified; F02.80 Dementia in other diseases classified elsewhere, unspecified severity, without behavioral disturbance, psychotic disturbance, mood disturbance, and anxiety; Z20.822 Contact with and (suspected) exposure to COVID-19
CPT/HCPCS: 36415; 70450; 71045; 80048; 80076; 82947; 83735; 83880; 84484; 85025; 85610; 87811; 93005

== ENCOUNTER 2022-11-27 13:35 | Emergency (ER) | payer OTHER ==
--- OUTSIDE RECORDS SUMMARY | 2022-11-27 13:45 | XMS REPORT | Continuity of Care Document ---
:1940 Author Organization [facility] t Address [address] [place] [address] [address] [place] [address] Care Team Providers Name Role Phone Eda DUTTA, Alex Sprague Primary Care Physician [phone] Nikko Vazquez Attending Clinician Unavailable Payers Payer Name Policy Type Policy Number Effective Date Expiration Date S milka [employer] MEDICARE C1 [id number] 2020 [facility] PPO 00:00:[address] [facility] [employer] MEDICARE C1 [id number] 2020 [facility] PPO 00:00:[address] [facility] [employer] MEDICARE C1 [id number] 2020 [facility] PPO 00:00:00 [facility] MEDICARE C1 [id number] 2020 [facility] PPO 00:00:[address] [facility] [employer] MEDICARE C1 [id number] 2020 [facility] PPO 00:00:00 [facility] Problems Condition Condition Condition Status Onset Resolution Last Treating Co mments Source Name Details Category Date Date Treatment Clinician Date [id number] Cognitive Problem Com mon deficit as Spirit late - [facility] effect of [facility] accident Center (CVA) 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[facility] stage 3B disease St (disorder) [facility] Skin mole Skin mole Problem Com mon [facility] - [facility] Benign Benign Problem Common hypertensi hypertensi Sp marino on on - [facility] 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 - [facility] [id number] Dementia Problem Commo n without Spirit behavioral - [facility] disturbanc St e, kes unspecifie Medica l d dementia Center type [id number] JAH Problem Common (generaliz Spirit ed anxiety - [facility] disorder) [facility] Hyperlipid Hyperlipid Problem C ommon emia emia Spirit - [facility] [id number] Balanitis Problem Comm on Spirit - [facility] [id number] Urinary Problem Common tract Spirit infection - [facility] without St hematuria, [facility] site Medical unspecifie Center d [id number] Allergic Problem Commo n rhinitis, Spirit unspecifie - CHI d St seasonalit [facility] y, Medical unspecifie Center d trigger Allergies, Adverse Reactions, Alerts This patient has no known allergies or adverse reactions. Family History Family Member Diagnosis Comments Start Date Stop Date Source Natural brother [facility] Natural father Heart failure [facility] Natural father Stroke [facility] Natural mother Cerebral aneurysm [facility] Natural mother Heart attack [facility] Social History Social Habit Start Date Stop Date Quantity Comments Source History of Tobacco Common [facility] - Use [facility] Gender identity [facility] Sexual orientation [facility] History of Social 2016-11-13 2016-11-[address] function 00:00:00 00:00:00 Hospital Alcohol intake 2016-05-26 2016-05-26 Current Muslim 00:00:00 00:00:00 non-drinker of Hospital alcohol (finding) Tobacco use and 2016-04-21 2016-04-21 Smokeless Muslim exposure 00:00:00 00:00:00 tobacco non-user Hospital Sex Assigned At [birth year] Muslim 00:00:00 00:00:00 Hospital Smoking Status Start Date Stop Date Source Former Smoker 2022-03-17 00:00:00 2022-03-17 00:00:00 Common S pirit - [facility] Medications Ordered Filled Start Stop Current Ordering Indication Dosage Frequency Signature Comments Components Source Medication Medication Date Date Medication? Clinician (SIG) Name Name Sylvain Narayan No 1{table QD FLUoxetine HCl 10 MG HCl 10 MG 7-02 t} HCl 10 MG 00:00: 00 red yeast 2015-05 Yes 600mg QD Take [...] tablet 12:45: daily. Hospit a 04 l Furosemide Furosemide No QD Furosemide 20 [...] E No Vitamin E Prostate Prostate No [facility] Lisinopril Lisinopril No 1{table [...] 40 MG 40 MG Prostate Prostate No [facility] Health Krill Oil Krill Oil [...] E No Vitamin E Prostate Prostate No [facility] Health Apple Cider Apple Cider No Apple [...] E No Vitamin E Prostate Prostate No [facility] Health Apple Cider Apple Cider No Apple [...] 20 MG 20 MG Prostate Prostate No Supply [facility] Vitamin D3 Vitamin D3 No Vitamin D3 [...] Comments Source height 2022-03-17 08:10:00 69 [in_i] [facility] weight 2022-03-17 08:10:00 167.5 [lb_av] [facility] temperature 2022-03-17 08:10:00 97.5 [degF] [facility] bmi 2022-03-17 08:10:00 24.73 kg/m2 [facility] oximetry 2022-03-17 08:10:00 98 % [facility] respiratory rate 2022-03-17 08:10:00 18 /min Comm on [facility] blood pressure 2022-03-17 08:10:00 124 mm[Hg] Common [facility] systolic [facility] blood pressure 2022-03-17 08:10:00 51 mm[Hg] Common [facility] - diastolic [facility] height 2021-11-18 10:00:00 69 [in_i] [facility] weight 2021-11-18 10:00:00 172.4 [lb_av] [facility] temperature 2021-11-18 10:00:00 98.4 [degF] [facility] bmi 2021-11-18 10:00:00 25.46 kg/m2 [facility] oximetry 2021-11-18 10:00:00 94 % [facility] respiratory rate 2021-11-18 10:00:00 16 /min Comm on [facility] blood pressure 2021-11-18 10:00:00 135 mm[Hg] Common [facility] - systolic [facility] blood pressure 2021-11-18 10:00:00 62 mm[Hg] Common [facility] - diastolic [facility] height 2021-11-18 10:10:00 69 [in_i] Common S pirit [facility] weight 2021-11-18 10:10:00 172.4 [lb_av] [facility] temperature 2021-11-18 10:10:00 98.4 [degF] Common S pirit [facility] bmi 2021-11-18 10:10:00 25.46 kg/m2 Common S pirit - [facility] oximetry 2021-11-18 10:10:00 95 % Common [facility] respiratory rate 2021-11-18 10:10:00 16 /min Comm on [facility] blood pressure 2021-11-18 10:10:00 135 mm[Hg] Common [facility] - systolic [facility] blood pressure 2021-11-18 10:10:00 62 mm[Hg] Common [facility] - diastolic [facility] height 2021-07-19 10:50:00 69 [in_i] Common [facility] weight 2021-07-19 10:50:00 171.3 [lb_av] [facility] temperature 2021-07-19 10:50:00 98.4 [degF] Common S pirit [facility] bmi 2021-07-19 10:50:00 25.29 kg/m2 [facility] S [facility] oximetry 2021-07-19 10:50:00 98 % Common S pirit [facility] respiratory rate 2021-07-19 10:50:00 16 /min Comm on [facility] blood pressure 2021-07-19 10:50:00 132 mm[Hg] Common [facility] - systolic [facility] blood pressure 2021-07-19 10:50:00 67 mm[Hg] Common [facility] - diastolic [facility] height 2021-02-22 13:20:00 69 [in_i] Common S pirit [facility] weight 2021-02-22 13:20:00 186.7 [lb_av] Common [facility] temperature 2021-02-22 13:20:00 98.1 [degF] Common [facility] bmi 2021-02-22 13:20:00 27.57 kg/m2 Common S [facility] oximetry 2021-02-22 13:20:00 95 % Common S [facility] respiratory rate 2021-02-22 13:20:00 17 /min Comm on [facility] blood pressure 2021-02-22 13:20:00 135 mm[Hg] Common [facility] - systolic [facility] blood pressure 2021-02-22 13:20:00 75 mm[Hg] Common [facility] - diastolic [facility] height 2020-12-14 13:20:00 69 [in_i] [facility] weight 2020-12-14 13:20:00 191.7 [lb_av] [facility] temperature 2020-12-14 13:20:00 98.4 [degF] Common [facility] bmi 2020-12-14 13:20:00 28.31 kg/m2 [facility] oximetry 2020-12-14 13:20:00 97 % [facility] respiratory rate 2020-12-14 13:20:00 16 /min Comm on [facility] blood pressure 2020-12-14 13:20:00 132 mm[Hg] Common [facility] - systolic [facility] blood pressure 2020-12-14 13:20:00 72 mm[Hg] Common [facility] diastolic [facility] Procedures This patient has no known procedures. Plan of Care Planned Activity Planned Date Details Comments Source Future Scheduled 2022-10-27 COVID-19 VACCINE (#1) [facility] Test 16:22:30 [code = COVID-19 VACCINE (#1)] Future Scheduled 2022-10-27 SHINGLES VACCINES (1 Met [facility] Test 16:22:30 of 2) [code = SHINGLES VACCINES (1 of 2)] Future Scheduled 2022-10-27 65+ [facility]CCAL [facility] Test 16:22:30 VACCINE (1 - PCV) [code = 65+ PNEUMOCOCCAL VACCINE (1 - PCV)] Future Scheduled 2022-10-27 INFLUENZA VACCINE [facility] Test 16:22:30 [code = INFLUENZA VACCINE] Future Scheduled 2022-04-28 COVID-19 VACCINE (#1) [facility] Test 18:17:55 [code = COVID-19 VACCINE (#1)] Future Scheduled 2022-04-28 SHINGLES VACCINES (1 Met [facility] Hospital Test 18:17:55 of 2) [code = SHINGLES VACCINES (1 of 2)] Future Scheduled 2022-04-28 65+ [facility]OCOCCAL [facility] Test 18:17:55 VACCINE (1 - PCV) [code = 65+ PNEUMOCOCCAL VACCINE (1 - PCV)] Future Scheduled 2022-04-28 INFLUENZA VACCINE [facility] Test 18:17:55 [code = INFLUENZA VACCINE] Future Scheduled 2022-04-28 COVID-19 VACCINE (#1) [facility] Hospital Test 18:17:55 [code = COVID-19 VACCINE (#1)] Future Scheduled 2022-04-28 SHINGLES VACCINES (1 Met [facility] Hospital Test 18:17:55 of 2) [code = SHINGLES VACCINES (1 of 2)] Future Scheduled 2022-04-28 65+ [facility]OCOCCAL [facility] Test 18:17:55 VACCINE (1 - PCV) [code = 65+ PNEUMOCOCCAL VACCINE (1 - PCV)] Future Scheduled 2022-04-28 INFLUENZA VACCINE [facility] Hospital Test 18:17:55 [code = INFLUENZA VACCINE] Encounters Start End Encounter Admission Attending Care Care Encounter Source Date/Time Date/Time Type Type Clinicians Facility Department ID 2022-03-15 Outpatient Vazquez, [facility] Common 10:15:04 [facility] 2022-03-10 Outpatient Vazquez, [facility] Common 08:46:03 [facility] 2021-06-08 Outpatient Vazquez, [facility] Common 13:58:43 [facility] [id number] [facility] 2021-06-08 Outpatient Vazquez, STLMLC STLMLC [id number] Common 13:33:51 Nikko [facility] 2021-06-08 Outpatient Vazquez, STLMLC STLMLC [id number] Common 13:33:22 Nikko [facility] 2021-06-08 Outpatient Vazquez, STLMLC STLMLC [id number] Common 13:19:40 Nikko [id number] [facility] 2021-06-08 Outpatient Vazquez, STLMLC STLMLC [id number] Common 12:45:14 Nikko [id number] [facility] 2021-06-08 Outpatient Vazquez, STLMLC STLMLC [id number] Common 12:26:05 Nikko [id number] [facility] 2022-03-17 2022-03-17 OFFICE STLMLC STLMLC [id number] Co mmon 00:00:00 00:00:00 VISIT Spirit ESTAB PT - CHI LEVEL 4 [facility] 2021-11-18 2021-11-18 OFFICE STLMLC STLMLC [id number] Co mmon 00:00:00 00:00:00 VISIT Spirit ESTAB PT - [facility]I LEVEL 4 [facility] 2021-11-18 2021-11-18 SUB ANNUAL STLMLC STLMLC [id number] Common 00:00:00 00:00:00 MCR Spirit WELLNESS - [facility] VISIT [facility] 2021-07-19 2021-07-19 OFFICE STLMLC STLMLC [id number] Co mmon 00:00:00 00:00:00 VISIT Spirit ESTAB PT - [facility]I LEVEL 4 [facility] 2021-02-23 2021-02-23 (TEL) STLMLC STLMLC [id number] Co mmon 00:00:00 00:00:00 Spirit [facility]I [facility] 2021-02-22 2021-02-22 OFFICE STLMLC STLMLC [id number] Co mmon 00:00:00 00:00:00 VISIT Spirit ESTAB PT - [facility]I LEVEL 4 [facility] 2021-02-09 2021-02-09 (TEL) STLMLC STLMLC [id number] Co mmon 00:00:00 00:00:00 [facility] 2020-12-14 2020-12-14 OFFICE STLMLC STLMLC [id number] Co mmon 00:00:00 00:00:00 VISIT [facility] 4 [facility] 2020-11-22 2020-11-22 (TEL) STLMLC STLMLC [id number] Co mmon 00:00:00 00:00:00 [facility] 2020-11-12 2020-11-12 Outpatient STLMLC STLMLC [id number] Common 00:00:00 00:00:00 [facility] 2020-08-24 2020-08-24 Outpatient STLMLC STLMLC [id number] Common 00:00:00 00:00:00 [facility] 2020-08-09 2020-08-09 Outpatient STLMLC STLMLC [id number] Common 00:00:00 00:00:00 [facility] 2020-08-09 2020-08-09 Outpatient STLMLC STLMLC [id number] Common 00:00:00 00:00:00 [facility] 2020-06-09 2020-06-09 Outpatient STLMLC STLMLC [id number] Common 00:00:00 00:00:00 [facility] Results This patient has no known results.
[2022-11-27] MEDS ORDERED: NA CHLORIDE 0.9% 1,000 ML ONE ×2 (14:47→15:39)
[2022-11-27 15:03] LABS: Albumin 3.7 g/dL (3.4-5.0); Bilirubin Direct 0.2 mg/dL (0-0.2); Bilirubin Indirect, Calculated 0.5 mg/dL (0.2-0.8); Bilirubin Total 0.7 mg/dL (0.2-1.0); Magnesium 2.2 mg/dL (1.6-2.4); Potassium 3.9 mEq/L (3.5-5.1); Protein, Total 7.3 g/dL (6.4-8.2); Troponin High Sensitivity 21.4 pg/mL (<58.9)
[2022-11-27 15:08] LABS: Absolute Lymphocytes (CBC) 0.5 K/uL (0.7-4.9); Hematocrit 37.7 % (39.6-49.0); Lymphocytes % 4.3 % (15.3-44.8); MCV 91.6 fL (80-100); MPV 7.1 fL (7.6-11.3); Protime INR 1.1; RBC Red Blood Cell Count 4.11 M/uL (4.33-5.43)
--- NOTE | 2022-11-27 16:20 | RAD REPORT ---
EXAM DESCRIPTION: Ricardo Single View11/27/2022 4:13 pm CLINICAL HISTORY: Cough COMPARISON: June 2022 FINDINGS: The lungs appear clear of acute infiltrate. The heart is normal size IMPRESSION: No acute abnormalities displayed
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
--- NOTE | 2022-11-27 16:42 | EDPHYS ---
Physician Documentation [facility] Name: Jake Silva Age: 82 yrs Sex: Male : 1940 Arrival Date: 11/27/2022 Time: 13:35 Bed 19 Private MD: ED Physician Qamar Puckett HPI: 11/27 14:33 This 82 yrs old Male presents to ER via EMS with complaints of General cherry Weakness. 14:33 GOT HOT, LAID DOWN. Onset: The symptoms/episode began/occurred just prior to arrival. cherry Severity of symptoms: At their worst the symptoms were mild in the emergency department the symptoms have improved mildly. The patient has not experienced similar symptoms in the past. Historical: - PMHx: 13:50 Alzheimer's disease; Anxiety; Hypertension; Dementia; sg5 - Immunization history:: Adult Immunizations up to date. - Social history:: Smoking status: Patient denies any tobacco usage or history of. - Family history:: not pertinent. ROS: 14:33 Constitutional: Negative for fever, chills, and weight loss, Eyes: Negative for injury, cherry pain, redness, and discharge, ENT: Negative for injury, pain, and discharge, Neck: Negative for injury, pain, and swelling, Cardiovascular: Negative for chest pain, palpitations, and edema, Respiratory: Negative for shortness of breath, cough, wheezing, and pleuritic chest pain, Abdomen/GI: Negative for abdominal pain, nausea, vomiting, diarrhea, and constipation, Back: Negative for injury and pain, : Negative for injury, bleeding, discharge, and swelling, MS/Extremity: Negative for injury and deformity, Skin: Negative for injury, rash, and discoloration, Psych: Negative for depression, anxiety, suicide ideation, homicidal ideation, and hallucinations, Allergy/Immunology: Negative for hives, rash, and allergies, Endocrine: Negative for neck swelling, polydipsia, polyuria, polyphagia, and marked weight changes, Hematologic/Lymphatic: Negative for swollen nodes, abnormal bleeding, and unusual bruising. 14:33 Neuro: Positive for weakness. Exam: 14:33 Constitutional: This is a well developed, well nourished patient who is awake, alert, cherry and in no acute distress. Head/Face: Normocephalic, atraumatic. Eyes: Pupils equal round and reactive to light, extra-ocular motions intact. Lids and lashes normal. Conjunctiva and sclera are non-icteric and not injected. Cornea within normal limits. Periorbital areas with no swelling, redness, or edema. ENT: Nares patent. No nasal discharge, no septal abnormalities noted. Tympanic membranes are normal and external auditory canals are clear. Oropharynx with no redness, swelling, or masses, exudates, or evidence of obstruction, uvula midline. Mucous membranes moist. Neck: Trachea midline, no thyromegaly or masses palpated, and no cervical lymphadenopathy. Supple, full range of motion without nuchal rigidity, or vertebral point tenderness. No Meningismus. Chest/axilla: Normal chest wall appearance and motion. Nontender with no deformity. No lesions are appreciated. Cardiovascular: Regular rate and rhythm with a normal S1 and S2. No gallops, murmurs, or rubs. Normal PMI, no JVD. No pulse deficits. Respiratory: Lungs have equal breath sounds bilaterally, clear to auscultation and percussion. No rales, rhonchi or wheezes noted. No increased work of breathing, no retractions or nasal flaring. Abdomen/GI: Soft, non-tender, with normal bowel sounds. No distension or tympany. No guarding or rebound. No evidence of tenderness throughout. Back: No spinal tenderness. No costovertebral tenderness. Full range of motion. Male : Normal genitalia with no discharge or lesions. Skin: Warm, dry with normal turgor. Normal color with no rashes, no lesions, and no evidence of cellulitis. MS/ Extremity: Pulses equal, no cyanosis. Neurovascular intact. Full, normal range of motion. Neuro: Awake and alert, GCS 15, oriented to person, place, time, and situation. Cranial nerves II-XII grossly intact. Motor strength 5/5 in all extremities. Sensory grossly intact. Cerebellar exam normal. Normal gait. Psych: Awake, alert, with orientation to person, place and time. Behavior, mood, and affect are within normal limits. 14:33 ECG was reviewed by the Attending Physician. Vital Signs: 13:48 BP 119 / 71; Pulse 70; Resp 18; Temp 98.1(O); Pulse Ox 96% on R/A; Weight 72.57 kg; sg5 Height 5 ft. 9 in. ; Pain 0/10; 15:28 BP 156 / 60; Pulse 62; Resp 18; Pulse Ox 100% on 2 lpm NC; sg5 16:03 BP 162 / 55; Pulse 64; Resp 16; Pulse Ox 100% on 2 lpm NC; sg5 13:48 Body Mass Index 23.63 (72.57 kg, 175.26 cm) sg5 13:48 Pain Scale: Adult sg5 MDM: 13:47 Patient medically [address] [facility] 11/27 14:00 Order name: CPK 11/27 13:48 Order name: EKG; Complete Time: 17:[address] [facility] 11/27 13:48 Order name: Cardiac monitoring [facility] 11/27 13:48 Order name: EKG - Nurse/Tech; Complete Time: 14:[address] [facility] 11/27 13:48 Order name: IV Saline Lock; Complete Time: 14:[address] [facility] 11/27 13:48 Order name: Labs collected and sent; Complete Time: 14:[address] [facility] 11/27 13:48 Order name: O2 Per Protocol [facility] 11/27 13:48 Order name: O2 Sat Monitoring [facility] EC:33 Rate is 62 beats/min. Rhythm is regular. QRS [place] is Normal. LA interval is normal. QRS cherry interval is normal. QT interval is normal. No Q waves. T waves are Normal. No ST changes noted. Clinical impression: Normal ECG and No evidence of ischemia. Interpreted by me. Reviewed by me. Administered Medications: 14:38 Drug: NS 0.9% IV 1000 ml Route: IV; Rate: 1 bolus; Site: right antecubital; sg5 15:27 Follow up: IV Status: Completed infusion; IV Intake: 1000ml sg5 15:32 Drug: NS 0.9% IV 1000 ml Route: IV; Rate: 1 bolus; Site: right antecubital; sg5 16:54 Follow up: IV Status: Completed infusion; IV Intake: 1000ml sg5 Disposition Summary: 11/27/22 16:32 Discharge Ordered Location: Home cherry Problem: new cherry Symptoms: have improved cherry Condition: Stable cherry Diagnosis - Weakness cherry - Heat exhaustion, unspecified cherry - Unspecified kidney failure cherry Followup: cherry - With: Private Physician - When: 2 - 3 days - Reason: Recheck today's complaints, Continuance of care, Re-evaluation by your physician Followup: cherry - With: - When: 2 - 3 days - Reason: Recheck today's complaints, Continuance of care, Re-evaluation by your physician Followup: cherry - With: - When: 2 - 3 days - Reason: Recheck today's complaints, Continuance of care, Re-evaluation by your physician Discharge Instructions: - Discharge Summary Sheet cherry - Near-Syncope cherry - Weakness cherry - Heat Exhaustion cherry - Weakness, [id number] cherry - Chronic Kidney Disease, Adult, [id number] cherry - Deconditioning cherry - Preventing Heat Exhaustion, Adult cherry Forms: - Medication Reconciliation Form cherry - Thank You Letter cherry - Antibiotic Education cherry - Prescription Opioid Use cherry - Patient Portal Instructions cherry Signatures: Dispatcher [employer] EDQamar Candelaria MD MD cha Galvan, Stephanie RN RN sg5
[2022-11-27 19:44] VITALS: TEMP 98.1
[2022-11-27 19:45] VITALS: O2SAT 100
[2022-11-27 19:46] VITALS: BP 162/55
--- NOTE | 2022-11-28 20:40 | EKG ---
Test Date: 2022-11-27 Test Time: 14:31:36 [employer] Program Manager: TABBY MEASUREMENT RESULTS: Intervals: Rate: 62 WV: 202 QRSD: 90 QT: 450 QTc: 456 Antonito: P: 50 WV: 202 QRS: 13 T: 35 INTERPRETIVE STATEMENTS: Normal sinus rhythm Normal ECG Compared to ECG 06/20/2022 11:32:35 Sinus bradycardia no longer present ST (T wave) deviation no longer present Electronically Signed On 11-28-22 20:37:58 CDT by Andrea De Luna
== END 2022-11-27 16:54 | disposition home or self-care (01) ==
LOC: ER 13:35
DX: T67.5XXA Heat exhaustion, unspecified, initial encounter (principal); X30.XXXA Exposure to excessive natural heat, initial encounter; R53.1 Weakness; N19 Unspecified kidney failure; I10 Essential (primary) hypertension; G30.9 Alzheimer's disease, unspecified; F02.80 Dementia in other diseases classified elsewhere, unspecified severity, without behavioral disturbance, psychotic disturbance, mood disturbance, and anxiety; F41.9 Anxiety disorder, unspecified
CPT/HCPCS: 96361; 93005; 85025; 80048; 36415; 83735; 82550; 85610; 80076; 84484; 83690; 83880; 71045; 96360; 99284; J7030 ×2

== ENCOUNTER 2022-12-14 11:53 | Emergency (ER) | payer OTHER ==
--- OUTSIDE RECORDS SUMMARY | 2022-12-14 11:57 | XMS REPORT | Continuity of Care Document ---
:1940 Author Organization [facility] t Address [address] [place] [address] [address] [place] [address] Care Team Providers Name Role Phone Eda DUTTA, Alex Sprague Primary Care Physician [phone] Nikko Vazquez Attending Clinician Unavailable Payers Payer Name Policy Type Policy Number Effective Date Expiration Date S ource [employer] MEDICARE C1 [id number] 2020 Common [facility] PPO 00:00:[address] [facility] HU[employer] MEDICARE C1 [id number] 2020 Common [facility] PPO 00:00:[address] [facility] [employer] MEDICARE C1 [id number] 2020 Common [facility] PPO 00:00:[address] - [facility] [employer] MEDICARE C1 [id number] 2020 Common Sp [facility] PPO 00:00:[address] [facility] [employer] MEDICARE C1 [id number] 2020 Common Sp marino PPO 00:00:00 [facility] Problems Condition Condition Condition Status Onset Resolution Last Treating Co mments Source Name Details Category Date Date Treatment Clinician Date [id number] 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 - [facility] [id number] Dementia Problem Commo n without Spirit behavioral - [facility] disturbanc St e, [facility] unspecifie Medica l d dementia Center type [id number] Problem Common (generaliz Spirit ed anxiety - CHI disorder) [facility] Hyperlipid Hyperlipid Problem C ommon emia emia Spirit - [facility] [id number] Balanitis Problem Comm on Spirit - [facility] [id number] Urinary Problem Common tract Spirit infection - [facility] without St hematuria, [facility] site Medical unspecifie Center d [id number] Allergic Problem Commo n rhinitis, Spirit unspecifie - [facility]I d St seasonalit [facility] y, Medical unspecifie Center d trigger Allergies, Adverse Reactions, Alerts This patient has no known allergies or adverse reactions. Family History Family Member Diagnosis Comments Start Date Stop Date Source Natural brother [facility] Natural father Heart failure [facility] Natural father Stroke [facility] Natural mother Cerebral aneurysm Met [facility] Natural mother [facility] Social History Social Habit Start Date Stop Date Quantity Comments Source History of Tobacco Common Spirit - Use [facility] Gender identity [facility] Sexual orientation [facility] History of Social 2016-11-13 2016-11-[address] function 00:00:00 00:00:00 Hospital Alcohol intake 2016-05-26 2016-05-26 Current Jewish 00:00:00 00:00:00 non-drinker of Hospital alcohol (finding) Tobacco use and 2016-04-21 2016-04-21 Smokeless Jewish exposure 00:00:00 00:00:00 tobacco non-user Hospital Sex Assigned At [birth year] Jewish 00:00:00 00:00:00 Hospital Smoking Status Start Date Stop Date Source Former Smoker 2022-03-17 00:00:00 2022-03-17 00:00:00 Common S pirit - [facility] Medications Ordered Filled Start Stop Current Ordering [...] Vitamin E Prostate Prostate No Prostate Health [facility] Lisinopril Lisinopril No 1{table QD Lisinopril [...] No Vitamin E Prostate Prostate No Prostate [facility] Health Lisinopril Lisinopril No 1{table QD Lisinopril [...] E No Vitamin E Prostate Prostate No [facility] Apple Cider Apple Cider No Apple [...] 20 MG 20 MG Prostate Prostate No [facility] Vitamin D3 Vitamin D3 No Vitamin [...] Comments Source height 2022-03-17 08:10:00 69 [in_i] [facility] weight 2022-03-17 08:10:00 167.5 [lb_av] [facility] temperature 2022-03-17 08:10:00 97.5 [degF] [facility] bmi 2022-03-17 08:10:00 24.73 kg/m2 [facility] oximetry 2022-03-17 08:10:00 98 % [facility] respiratory rate 2022-03-17 08:10:00 18 /min Comm on [facility] blood pressure 2022-03-17 08:10:00 124 mm[Hg] [facility] - systolic [facility] blood pressure 2022-03-17 08:10:00 51 mm[Hg] [facility] - diastolic [facility] height 2021-11-18 10:00:00 69 [in_i] [facility] weight 2021-11-18 10:00:00 172.4 [lb_av] [facility] temperature 2021-11-18 10:00:00 98.4 [degF] [facility] bmi 2021-11-18 10:00:00 25.46 kg/m2 [facility] oximetry 2021-11-18 10:00:00 94 % [facility] respiratory rate 2021-11-18 10:00:00 16 /min Comm on [facility] blood pressure 2021-11-18 10:00:00 135 mm[Hg] Common [facility] - systolic [facility] blood pressure 2021-11-18 10:00:00 62 mm[Hg] Common [facility] - diastolic [facility] height 2021-11-18 10:10:00 69 [in_i] Common [facility] weight 2021-11-18 10:10:00 172.4 [lb_av] Common [facility] temperature 2021-11-18 10:10:00 98.4 [degF] Common [facility] bmi 2021-11-18 10:10:00 25.46 kg/m2 [facility] oximetry 2021-11-18 10:10:00 95 % [facility] respiratory rate 2021-11-18 10:10:00 16 /min Comm on [facility] blood pressure 2021-11-18 10:10:00 135 mm[Hg] Common [facility] - systolic [facility] blood pressure 2021-11-18 10:10:00 62 mm[Hg] Common [facility] - diastolic [facility] height 2021-07-19 10:50:00 69 [in_i] Common [facility] weight 2021-07-19 10:50:00 171.3 [lb_av] Common [facility] temperature 2021-07-19 10:50:00 98.4 [degF] Common [facility] bmi 2021-07-19 10:50:00 25.29 kg/m2 [facility] oximetry 2021-07-19 10:50:00 98 % [facility] respiratory rate 2021-07-19 10:50:00 16 /min Comm on [facility] blood pressure 2021-07-19 10:50:00 132 mm[Hg] Common [facility] - systolic [facility] blood pressure 2021-07-19 10:50:00 67 mm[Hg] Common Spirit - diastolic [facility] height 2021-02-22 13:20:00 69 [in_i] Common S [facility] weight 2021-02-22 13:20:00 186.7 [lb_av] [facility] temperature 2021-02-22 13:20:00 98.1 [degF] Common S [facility] bmi 2021-02-22 13:20:00 27.57 kg/m2 [facility] oximetry 2021-02-22 13:20:00 95 % [facility] respiratory rate 2021-02-22 13:20:00 17 /min Comm on [facility] blood pressure 2021-02-22 13:20:00 135 mm[Hg] Common [facility] - systolic [facility] blood pressure 2021-02-22 13:20:00 75 mm[Hg] Common [facility] - diastolic [facility] height 2020-12-14 13:20:00 69 [in_i] Common [facility] weight 2020-12-14 13:20:00 191.7 [lb_av] [facility] temperature 2020-12-14 13:20:00 98.4 [degF] Common [facility] bmi 2020-12-14 13:20:00 28.31 kg/m2 [facility] oximetry 2020-12-14 13:20:00 97 % [facility] respiratory rate 2020-12-14 13:20:00 16 /min Comm on [facility] blood pressure 2020-12-14 13:20:00 132 mm[Hg] Common [facility] - systolic [facility] blood pressure 2020-12-14 13:20:00 72 mm[Hg] Common [facility] diastolic [facility] Procedures This patient has no known procedures. Plan of Care Planned Activity Planned Date Details Comments Source Future Scheduled 2022-10-27 COVID-19 VACCINE (#1) [facility] 16:22:30 [code = COVID-19 VACCINE (#1)] Future Scheduled 2022-10-27 SHINGLES VACCINES ([facility] 16:22:30 of 2) [code = SHINGLES VACCINES (1 of 2)] Future Scheduled 2022-10-27 65+ [facility]OCOCCAL [facility] Test 16:22:30 VACCINE (1 - PCV) [code = 65+ PNEUMOCOCCAL VACCINE (1 - PCV)] Future Scheduled 2022-10-27 INFLUENZA VACCINE [facility] Test 16:22:30 [code = INFLUENZA VACCINE] Future Scheduled 2022-10-27 COVID-19 VACCINE (#1) [facility] 16:22:30 [code = COVID-19 VACCINE (#1)] Future Scheduled 2022-10-27 SHINGLES VACCINES (1 [facility] Test 16:22:30 of 2) [code = SHINGLES VACCINES (1 of 2)] Future Scheduled 2022-10-27 65+ [facility]OCOCCAL [facility] Test 16:22:30 VACCINE (1 - PCV) [code = 65+ PNEUMOCOCCAL VACCINE (1 - PCV)] Future Scheduled 2022-10-27 INFLUENZA VACCINE [facility] Test 16:22:30 [code = INFLUENZA VACCINE] Future Scheduled 2022-04-28 COVID[facility]19 [facility] 18:17:55 [code = COVID-19 VACCINE (#1)] Future Scheduled 2022-04-28 SHINGLES VACCINES (1 [facility] Test 18:17:55 of 2) [code = SHINGLES VACCINES (1 of 2)] Future Scheduled 2022-04-28 65+ [facility]UMOCOCCAL [facility] Test 18:17:55 VACCINE (1 - PCV) [code = 65+ PNEUMOCOCCAL VACCINE (1 - PCV)] Future Scheduled 2022-04-28 INFLUENZA VACCINE [facility] Test 18:17:55 [code = INFLUENZA VACCINE] Future Scheduled 2022-04-28 COVID-19 VACCINE (#[facility] 18:17:55 [code = COVID-19 VACCINE (#1)] Future Scheduled 2022-04-28 SHINGLES VACCINES (1 [facility] Test 18:17:55 of 2) [code = [...] Facility Department ID 2022-03-15 Outpatient Vazquez, STLMLC STLC [id number] Common 10:15:04 Nikko [id number] [facility] 2022-03-10 Outpatient Vazquez, STLMLC STLC [id number] Common 08:46:03 Nikko [id number] [facility] 2021-06-08 Outpatient Vazquez, STLMLC STLC [id number] Common 13:58:43 Nikko 76538 [facility] 2021-06-08 Outpatient Vazquez, STLMLC STLC [id number] Common 13:33:51 Nikko 10928 [facility] 2021-06-08 Outpatient Vazquez, STLC STLC [id number] Common 13:33:22 Nikko 93563 [facility] 2021-06-08 Outpatient Vazquez, STLC STLC [id number] Common 13:19:40 Nikko [id number] [facility] 2021-06-08 [facility] [id number] Common 12:45:14 Nikko [id number] [facility] 2021-06-08 Outpatient Vazquez, STLC STLC [id number] Common 12:26:05 Nikko [id number] [facility] 2022-03-17 2022-03-17 OFFICE STLC STLC [id number] Co mmon 00:00:00 00:00:00 VISIT Spirit ESTAB PT - CHI LEVEL [address] [place] [address] 2021-11-18 2021-11-18 OFFICE STLC STLC [id number] Co mmon 00:00:00 00:00:00 VISIT Spirit ESTAB PT - CHI LEVEL 4 [facility] 2021-11-18 2021-11-18 SUB ANNUAL STLMLC STLMLC [id number] Common 00:00:00 00:00:00 MCR Spirit WELLNESS - CHI VISIT [facility] 2021-07-19 2021-07-19 OFFICE STLMLC STLMLC [id number] Co mmon 00:00:00 00:00:00 VISIT Spirit ESTAB PT - CHI LEVEL 4 [facility] 2021-02-23 2021-02-23 (TEL) STLMLC STLMLC [id number] Co mmon 00:00:00 00:00:00 Spirit - [facility] 2021-02-22 2021-02-22 OFFICE STLMLC STLMLC [id number] Co mmon 00:00:00 00:00:00 VISIT [facility] ESTAB PT - CHI LEVEL 4 [facility] 2021-02-09 2021-02-09 (TEL) STLMLC STLMLC [id number] Co mmon 00:00:00 00:00:00 Spirit - [facility] 2020-12-14 2020-12-14 OFFICE STLMLC STLMLC [id number] Co mmon 00:00:00 00:00:00 VISIT [facility] ESTAB PT - CHI LEVEL 4 [facility] 2020-11-22 2020-11-22 (TEL) STLMLC STLMLC [id number] Co mmon 00:00:00 00:00:00 [facility] 2020-11-12 2020-11-12 Outpatient STLMLC STLMLC [id number] Common 00:00:00 00:00:00 [facility] 2020-08-24 2020-08-24 Outpatient STLMLC STLMLC [id number] Common 00:00:00 00:00:00 [facility] 2020-08-09 2020-08-09 Outpatient STLMLC STLMLC [id number] Common 00:00:00 00:00:00 [facility] 2020-08-09 2020-08-09 Outpatient STLMLC STLMLC [id number] Common 00:00:00 00:00:00 [facility] 2020-06-09 2020-06-09 Outpatient [facility] [id number] Common 00:00:00 00:00:00 [facility] Results This patient has no known results.
--- NOTE | 2022-12-14 12:13 | ER ---
Nurse's Notes [facility] Name: Jake Silva Age: 82 yrs Sex: Male : 1940 Arrival Date: 12/14/2022 Time: 11:53 Bed 6 Private MD: Diagnosis: Heat fatigue, transient;Dementia in other diseases classified elsewhere with behavioral disturbance Presentation: 12/14 11:54 Chief complaint: EMS states: LAYING DOWN OUTSIDE OF [facility]. Coronavirus screen: At this bp time, the client does not indicate any symptoms associated with coronavirus-19. Ebola Screen: No symptoms or risks identified at this time. Initial Sepsis Screen: Does the patient meet any 2 criteria? No. Patient's initial sepsis screen is negative. Does the patient have a suspected source of infection? No. Patient's initial sepsis screen is negative. Risk Assessment: Do you want to hurt yourself or someone else? Patient reports no desire to harm self or others. Onset of symptoms is unknown. 11:54 Method Of Arrival: EMS: [facility] bp 11:54 Acuity: AKILA 4 bp Triage Assessment: 11:56 General: Appears in no apparent distress. comfortable, Behavior is calm, cooperative, bp appropriate for age. Pain: Denies pain. EENT: No deficits noted. Neuro: No deficits noted. Cardiovascular: Rhythm is sinus rhythm. Respiratory: No deficits noted. GI: No signs and/or symptoms were reported involving the gastrointestinal system. : No signs and/or symptoms were reported regarding the genitourinary system. Derm: No deficits noted. Musculoskeletal: No deficits noted. Historical: - Allergies: 11:56 No Known Allergies; bp - PMHx: 11:56 Hypertension; Dementia; Anxiety; Alzheimer's disease; bp - Immunization history:: Adult Immunizations up to date. - Social history:: Smoking status: unknown. Screenin:57 [facility] ED Fall Risk Assessment (Adult) History of falling in the last 3 months, bp including since admission No falls in past 3 months (0 pts). Abuse screen: Denies threats or abuse. Denies injuries from another. Nutritional screening: No deficits noted. Tuberculosis screening: No symptoms or risk factors identified. Assessment: 11:57 General: SEE TRIAGE NOTE. bp Vital Signs: 11:54 BP 148 / 62; Pulse 75; Resp 16; Temp 98; Pulse Ox 98% ; bp ED Course: 11:54 Patient arrived in ED. bp 11:55 Devin Gruber MD is Attending Physician. cp3 11:55 Triage completed. bp 11:56 Arm band placed on. bp 11:57 Patient has correct armband on for positive identification. Bed in low position. Call bp light in reach. Side rails up X2. 12:12 Tashi Reyes DO is Referral Physician. cp3 12:20 Provided Education on: dc INSTRUCTIONS. dd1 12:20 No provider procedures requiring assistance completed. Patient did not have IV access dd1 during this emergency room visit. Administered Medications: No medications were administered Medication: 11:57 VIS not applicable for this client. bp Outcome: 12:13 Discharge ordered by . cp3 12:20 Discharged to home ambulatory, with family. dd1 12:20 Condition: good 12:20 Discharge instructions given to patient, family, Instructed on discharge instructions, follow up and referral plans. Demonstrated understanding of instructions, follow-up care. 12:21 Patient left the ED. dd1 Signatures: Devin Gruber MD MD cp3 Stevenson Collins, RN RN bp Ezra Membreno, RN RN dd1
[2022-12-14 12:30] VITALS: BP 148/62; TEMP 98; O2SAT 98
--- NOTE | 2022-12-16 15:34 | EDPHYS ---
Physician Documentation [facility] Name: Jake Silva Age: 82 yrs Sex: Male : 1940 Arrival Date: 12/14/2022 Time: 11:53 Bed 6 Private MD: ED Physician Devin Gruber Historical: - Allergies: 12/14 11:56 No Known Allergies; bp - PMHx: 11:56 Hypertension; Dementia; Anxiety; Alzheimer's disease; bp - Immunization history:: Adult Immunizations up to date. - Social history:: Smoking status: unknown. Vital Signs: 11:54 BP 148 / 62; Pulse 75; Resp 16; Temp 98; Pulse Ox 98% ; bp MDM: 11:55 Patient medically screened. cp3 Administered Medications: No medications were administered Disposition Summary: 12/14/22 12:13 Discharge Ordered Location: Home cp3 Condition: Stable cp3 Diagnosis - Heat fatigue, transient cp3 - Dementia in other diseases classified elsewhere with behavioral disturbance cp3 Followup: cp3 - With: Tashi Reyes DO - When: As needed - Reason: Discharge Instructions: - Discharge Summary Sheet cp3 - Dementia cp3 - Heat Exhaustion cp3 Forms: - Medication Reconciliation Form cp3 - Thank You Letter cp3 - Antibiotic Education cp3 - Prescription Opioid Use cp3 - Patient Portal Instructions cp3 Addendum: 12/16/2022 15:26 Addendum: Patient is a 82-year-old male with a history of hypertension, dementia, c p3 anxiety, Alzheimer's diseases presents to the ED secondary to generalized weakness after heat exposure x1 hour. The patient was brought by EMS secondary to patient taking a nap outside of [facility]. The patient is without complaints at this time. The patient denies chest pain, shortness of breath, fatigue, syncope. The patient endorses he is not sure why they brought him to the emergency department and wants to go home.. Addendum: The patient's past medical, surgical, social history reviewed Allergies: No known allergies . Addendum: Nursing notes reviewed and agree Review of systems: Review of systems is negative for chest pain, shortness of breath, fever, chills, vomiting, dizziness, lightheadedness, generalized weakness All other review of systems negative Physical exam GENERAL APPEARANCE: AxOx4, generally well-appearing M/F, no acute distress. HEENT: NC, AT. MMM. EOMI, clear conjunctiva, oropharynx clear. NECK: Supple without lymphadenopathy. No stiffness or restricted ROM. HEART: Normal rate and regular rhythm, normal S1/S1, no m/r/g LUNGS: CTAB, moving air well. No crackles or wheezes are heard. ABDOMEN: Soft, nontender, nondistended with good bowel sounds heard. BACK: No CVAT, no obvious deformity. EXTREMITIES: Without cyanosis, clubbing or edema. NEUROLOGICAL: Grossly nonfocal. Alert and oriented, moving all 4 extremities. CN not formally tested but appear grossly intact. Observed to ambulate with normal gait. Skin: Warm and dry without any rash. EKG interpreted: Normal Rinus rhythm, Rate rate 70, no evidence of acute OK Additional report provided by EMS: EMS endorse patient was at [facility] taking a nap and all markers were worried about the patient Patient's presented to the ED and will take patient home. 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 Signatures: Devin Gruber MD MD cp3 Stevesnon Collins, RN RN bp
== END 2022-12-14 12:21 | disposition home or self-care (01) ==
LOC: ER 11:53
DX: T67.6XXA Heat fatigue, transient, initial encounter (principal); G30.9 Alzheimer's disease, unspecified; F02.80 Dementia in other diseases classified elsewhere, unspecified severity, without behavioral disturbance, psychotic disturbance, mood disturbance, and anxiety; I10 Essential (primary) hypertension; F41.9 Anxiety disorder, unspecified
CPT/HCPCS: 99283

== ENCOUNTER 2024-01-06 15:02 | Emergency (ER) | payer OTHER ==
--- NOTE | 2024-01-06 16:32 | RAD REPORT ---
EXAM DESCRIPTION: CT - [id number] - 01/06/2024 4:02 pm CLINICAL HISTORY: TRAUMA COMPARISON: Abdomen Pelvis W Contrast dated 12/16/2023Head C Spine Mpr Wo Con dated 05/31/2022 TECHNIQUE: Axial thin cut noncontrast CT images of the head were obtained. Axial thin cut noncontrast CT images of the cervical spine were obtained. Multiplanar reformatted images were generated and reviewed. All CT scans are performed using dose optimization technique as appropriate and may include automated exposure control or mA/KV adjustment according to patient size. FINDINGS: CT HEAD WITHOUT CONTRAST: No acute hemorrhage, hydrocephalus or extra-axial collection is identified. Moderate diffuse parenchy mal volume loss. No areas of brain edema or midline shift. The paranasal sinuses and mastoids are clear.The calvarium is intact. CT CERVICAL SPINE WITHOUT CONTRAST: No fracture or subluxation. Moderate multilevel degenerative changes. No prevertebral soft tissues sw elling is identified. IMPRESSION: No acute traumatic intracranial or cervical spine findings.
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
[2024-01-06 17:15] VITALS: TEMP 98.5
[2024-01-06 17:16] VITALS: BP 143/60; O2SAT 94
== END 2024-01-06 17:10 | disposition home or self-care (01) ==
LOC: ER 15:02
DX: Z04.3 Encounter for examination and observation following other accident (principal); V18.0XXA Pedal cycle driver injured in noncollision transport accident in nontraffic accident, initial encounter; G30.9 Alzheimer's disease, unspecified; F02.80 Dementia in other diseases classified elsewhere, unspecified severity, without behavioral disturbance, psychotic disturbance, mood disturbance, and anxiety
CPT/HCPCS: 70450; 72125; 99284

== ENCOUNTER 2024-01-11 14:25 | Emergency (ER) | payer OTHER ==
[2024-01-11] MEDS ORDERED: ZIPRASIDONE MESYLA 20 MG/VIAL IM ONE ×2 (15:15→15:54)
[2024-01-11] MEDS ORDERED: WATER FOR INJ,STERILE 10 ML ONE ×2 (15:15→15:55)
[2024-01-11 15:25] LABS: Absolute Eosinophils 0.8 K/uL (0-0.5); Absolute Lymphocytes (CBC) 1.6 K/uL (0.7-4.9); Absolute Monocytes 0.6 K/uL (0.1-1.3); Absolute Neutrophil 3.8 K/uL (1.8-8.0); Basophils % 0.6 % (0-1.3); Eosinophils % 12.1 % (0-4.4); Hematocrit 39.5 % (39.6-49.0); Hemoglobin 12.7 g/dL (13.6-17.9); Lymphocytes % 23.4 % (15.3-44.8); MCH 29.5 pg (27.0-35.0); MCV 92.1 fL (80-100); MPV 7.1 fL (7.6-11.3); Neutrophils % 54.9 % (41.7-73.7); Platelets 265 thou/uL (152-406); RBC Red Blood Cell Count 4.29 M/uL (4.33-5.43); Red Cell Distribution Width 14.7 % (12.1-15.2)
[2024-01-11 15:27] LABS: PT Prothrombin Time 10.9 SECONDS (9.4-12.5); PTT, Activated Partial Thromb 32.4 SECONDS (24.3-36.9); Protime INR 0.97
[2024-01-11 15:35] LABS: ALT/SGPT 30 U/L (16-61); AST/SGOT 29 U/L (15-37); Albumin 3.9 g/dL (3.4-5.0); Albumin/Globulin Ratio 1.1 (1.1-1.8); Alkaline Phosphatase 77 U/L (45-117); Anion Gap 9.6 mEq/L (5.0-15.0); BUN Blood Urea Nitrogen 32 mg/dL (7-18); Bicarbonate 23 mEq/L (21-32); Bilirubin Direct 0.2 mg/dL (0-0.2); Bilirubin Indirect, Calculated 0.4 mg/dL (0.2-0.8); Bilirubin Total 0.6 mg/dL (0.2-1.0); Globulin 3.5 g/dL (2.3-3.5); Glomerular Filtration Rate 37 ml/min (=/>90); Glucose Level 93 mg/dL (74-106); Potassium 3.6 mEq/L (3.5-5.1); Protein, Total 7.4 g/dL (6.4-8.2); Sodium Level 138 mEq/L (136-145)
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
--- NOTE | 2024-01-11 15:45 | ER ---
Nurse's Notes [facility] Name: Jake Silva Age: 83 yrs Sex: Male : 1940 Arrival Date: 01/11/2024 Time: 14:25 Bed 13 Private MD: Diagnosis: Dementia in other diseases classified elsewhere with behavioral disturbance;Suicidal ideations Presentation: 01/10 14:38 Chief complaint: POLICE BROUGHT PT IN ON [place]EN DUE TO PT MAKING STATEMENT THAT HE WANTS db TO "SHOOT" HIMSELF IN THE HEAD. BROUGHT HIM TO POLICE DEPARTMENT BECAUSE HE WANTED TO GO SHE WAS DRIVING HIM CRAZY. RECENTLY PT WAS REPORTED MISSING. Coronavirus screen: Client denies travel out of the [place] in the last 14 days. At this time, the client does not indicate any symptoms associated with coronavirus-19. Ebola Screen: Patient negative for fever greater than or equal to 101.5 degrees Fahrenheit, and additional compatible Ebola Virus Disease symptoms Patient denies exposure to infectious person. Patient denies travel to an Ebola-affected area in the 21 days before illness onset. No symptoms or risks identified at this time. Initial Sepsis Screen: Does the patient meet any 2 criteria? No. Patient's initial sepsis screen is negative. Does the patient have a suspected source of infection? No. Patient's initial sepsis screen is negative. Risk Assessment: Do you want to hurt yourself or someone else? Patient reports desire/thoughts of hurting themselves or someone else. Provider notified. Onset of symptoms was January 11, 2024. 14:38 Method Of Arrival: Law Enforcement: Jarod MARSHALL db 14:38 Acuity: AKILA 2 db Triage Assessment: 14:40 General: Appears in no apparent distress. comfortable, Behavior is calm, cooperative. db Pain: Denies pain. Neuro: Level of Consciousness is awake, alert, obeys commands, Oriented to person. Historical: - Allergies: 14:40 No Known Allergies; db - PMHx: 14:40 Alzheimer's disease; Anxiety; Dementia; Hypertension; db - Immunization history:: Adult Immunizations unknown. - Infectious Disease History:: Denies. - Social history:: Smoking status: Patient denies any tobacco usage or history of. Screenin:37 [facility] ED Fall Risk Assessment (Adult) History of falling in the last 3 months, rs5 including since admission No falls in past 3 months (0 pts) Confusion or Disorientation No (0 pts) Intoxicated or Sedated No (0 pts) Impaired Gait No (0 pts) Mobility Assist Device Used No (0 pt) Altered Elimination No (0 pt) Score/Fall Risk Level 0 - 2 = Low Risk Oriented to surroundings, Maintained a safe environment. Abuse screen: Denies threats or abuse. Nutritional screening: No deficits noted. Tuberculosis screening: No symptoms or risk factors identified. Assessment: 14:36 General: Appears in no apparent distress. comfortable, Behavior is cooperative, rs5 anxious. General: Behavior is agitated. Pain: Denies pain. Neuro: Level of Consciousness is awake, alert, obeys commands, Oriented to person, place, time, situation. Cardiovascular: Patient's skin is warm and dry. Respiratory: Airway is patent Respiratory effort is even, unlabored, Respiratory pattern is regular, symmetrical. GI: Abdomen is round non-distended, Abd is soft and non tender X 4 quads. : No signs and/or symptoms were reported regarding the genitourinary system. EENT: No signs and/or symptoms were reported regarding the EENT system. Derm: Skin is intact, Skin is pink, warm \\T\\ dry. Musculoskeletal: Range of motion: intact in all extremities. 14:37 Reassessment: to bedside for C-SSRS, sitter at bedside, see paper charting for more rs5 information. 14:40 Reassessment: PD WITH PT. db 14:40 Reassessment: pt removed all clothing and attempting to leave, provider notified. rs5 16:01 Reassessment: Patient and/or family updated on plan of care and expected duration. Pain rs5 level reassessed. Patient is alert, oriented x 3, equal unlabored respirations, skin warm/dry/pink. 16:50 Reassessment: pt repeatedly removing clothes and attempting to leave, pt states "I want rs5 to get out of here right now!!!!" provider notified. 16:59 Reassessment: to bedside for med adm. rs5 17:30 Reassessment: Patient and/or family updated on plan of care and expected duration. Pain rs5 level reassessed. Patient is alert, oriented x 3, equal unlabored respirations, skin warm/dry/pink. General: Behavior is calm, cooperative. 17:31 Reassessment: sitter remains at bedside . rs5 18:32 Reassessment: Patient and/or family updated on plan of care and expected duration. Pain rs5 level reassessed. Patient is alert, oriented x 3, equal unlabored respirations, skin warm/dry/pink. 19:30 Reassessment: Patient appears in no apparent distress at this time. Patient and/or cp4 family updated on plan of care and expected duration. Pain level reassessed. Patient is alert, oriented x 3, equal unlabored respirations, skin warm/dry/pink. Patient sleeping. 20:30 Reassessment: Patient appears in no apparent distress at this time. Patient and/or cp4 family updated on plan of care and expected duration. Pain level reassessed. Patient is alert, oriented x 3, equal unlabored respirations, skin warm/dry/pink. Patient sleeping. 21:30 Reassessment: Patient appears in no apparent distress at this time. Patient and/or cp4 family updated on plan of care and expected duration. Pain level reassessed. Patient is alert, oriented x 3, equal unlabored respirations, skin warm/dry/pink. 22:30 Reassessment: Patient appears in no apparent distress at this time. Patient and/or cp4 family updated on plan of care and expected duration. Pain level reassessed. Patient is alert, oriented x 3, equal unlabored respirations, skin warm/dry/pink. 23:30 Reassessment: Patient appears in no apparent distress at this time. Patient and/or cp4 family updated on plan of care and expected duration. Pain level reassessed. Patient is alert, oriented x 3, equal unlabored respirations, skin warm/dry/pink. 01/11 00:30 Reassessment: Patient appears in no apparent distress at this time. Patient and/or cp4 family updated on plan of care and expected duration. Pain level reassessed. Patient is alert, oriented x 3, equal unlabored respirations, skin warm/dry/pink. 01:30 Reassessment: Patient appears in no apparent distress at this time. Patient and/or cp4 family updated on plan of care and expected duration. Pain level reassessed. Patient is alert, oriented x 3, equal unlabored respirations, skin warm/dry/pink. 02:30 Reassessment: Patient appears in no apparent distress at this time. Patient and/or cp4 family updated on plan of care and expected duration. Pain level reassessed. Patient is alert, oriented x 3, equal unlabored respirations, skin warm/dry/pink. Psych: 01/10 14:35 [place] Suicide Severity Screening: In the past month, have you wished you were rs5 or wished you could go to sleep and not wake up? Patient responds "yes." Based off the client's responses additional C-SSRS screening is required. "In the past month, have you actually had any thoughts of killing yourself?" Patient responds "yes." Based off the client's response additional [place] suicide severity screening questions to be further documented on paper forms. "In your lifetime, have you ever done anything, started to do anything, or prepared to do anything to end your life?" Patient responds "no.". Subjective: Patient's mood is anxious, agitated. 14:35 Subjective: Delusions are denied, Hallucinations are denied Having thoughts of suicide. rs5 Denies suicidal plan. Objective: Patient is restless, Speech is normal, Affect is appropriate. Interventions: Removed personal items and placed in bag. Patient placed in hospital gown. Searched person for dangerous items. Urine collected and sent for urine drug test. Belonging list filled out. Patient reassessed during use of restraints. Patient is physically safe. Patient assessed for signs of distress. Patient remains reasonably comfortable at this time. Safety Checks: Personal items have been removed. Door is open. Visitors are present. Pt denies substance abuse. Commitment: Patient will be an involuntary commitment. Vital Signs: 14:38 BP 139 / 61; Pulse 64; Resp 16; Temp 98; Pulse Ox 100% ; db 18:01 BP 129 / 67; Pulse 70; Resp 17; Pulse Ox 99% on R/A; rs5 ED Course: 14:25 Patient arrived in ED. im 14:26 Maurizio Jensen DO is Attending Physician. ms3 14:37 Patient has correct armband on for positive identification. Placed in gown. Bed in low rs5 position. Call light in reach. Side rails up X2. 14:37 No provider procedures requiring assistance completed. rs5 14:40 Triage completed. db 14:40 Arm band placed on right wrist. Patient placed in an exam room. db 14:45 Stoddard, Jarred, RN is Primary Nurse. rs5 15:01 Initial lab(s) drawn, by co, sent to lab. Inserted saline lock: 20 gauge in right hb antecubital area, using aseptic technique. Blood collected. Flushed with 10 mL NS. 17:10 Adult Protective Services APS key account representative Jacqueline Tiwari called requesting to be em1 notified upon discharge or transfer of this patient. She can be contacted at [phone]. 19:22 Faxed pt clinicals to the following facilities for placement; [address] 20:04 Attending Physician role handed off by Maurizio Jensen DO sp4 20:04 Tyson Meeks MD is Attending Physician. sp4 21:25 Attending Physician role handed off by Tyson Meeks MD ms3 21:25 Maurizio Jensen DO is Attending Physician. ms3 01/11 03:17 Provided Education on: transfer. cp4 03:17 intact, bleeding controlled, No redness/swelling at site. Pressure dressing applied. cp4 Administered Medications: 01/10 15:19 Drug: Geodon IM 20 mg IM once Route: IM; Site: right vastus lateralis; hb 16:00 Drug: Geodon IM 20 mg IM once Route: IM; Site: right deltoid; rs5 16:56 CANCELLED (Physician Discretion): lorazepam2 mg IM once ms3 16:59 Drug: LORazepam IM 1 mg IM once Route: IM; Site: left deltoid; rs5 17:35 Follow up: Response: No adverse reaction; Anxiety decreased rs5 Medication: 17:17 VIS not applicable for this client. rs5 Outcome: 15:45 ER care complete, transfer ordered by . ms3 01/11 02:45 Transferred by ground EMS to other acute care facility: [facility]. vc1 Condition: good 02:45 Instructed on the need for transfer, vc1 02:45 Patient left the ED. vc1 Signatures: Sung Coates em1 Chiquita Kemp, RICKY GARCÍA Maurizio Jensen DO DO ms3 Lisa Noonan RN RN vc1 Teresa Mann RN RN Zoey Sánchez rv1 Jarred Stoddard, RICKY RN rs5 Tyson Meeks MD MD sp4 Chey Goldberg Christina cp4 Corrections: (The following items were deleted from the chart) 01/10 14:49 14:38 Risk Assessment: Do you want to hurt yourself or someone else? Patient reports no db desire to harm self or others. db 01/11 03:05 03:04 Patient left the ED. vc1 vc1
[2024-01-11] MEDS ORDERED: LORazepam 2 MG/ML VIAL ONE (16:57)
[2024-01-11 18:44] LABS: Specific Gravity 1.009 (1.005-1.030); Sqamous Epithelial None Seen /HPF (None Seen); Urine Bacteria None Seen /HPF (<20); Urine Bilirubin NEGATIVE (Negative); Urine Blood Negative (Negative); Urine Clarity Clear (Clear); Urine Color Light-Yellow (Yellow); Urine Culture Reflex Order NOT NEEDED; Urine Glucose NEGATIVE (Negative); Urine Ketones NEGATIVE (Negative); Urine Micro Reflex YN NO BILL MICROSCOPIC; Urine Mucus Slight /HPF (None Seen); Urine Nitrite NEGATIVE (Negative); Urine Protein NEGATIVE (Negative); Urine RBC <5 /HPF (None Seen); Urine Urobilinogen Normal (Normal); Urine WBC <5 /HPF (<5); Urine pH 5.5 (5.0-7.0)
[2024-01-11 18:45] LABS: Barbiturates NEGATIVE (NEGATIVE); Benzodiazepines NEGATIVE (NEGATIVE); Cocaine NEGATIVE (NEGATIVE); METHAMPHETAM NEGATIVE (NEGATIVE); Methadone NEGATIVE (NEGATIVE); Opiates NEGATIVE (NEGATIVE); Phencyclidine NEGATIVE (NEGATIVE); THC Cannibis NEGATIVE (NEGATIVE)
[2024-01-12 03:13] VITALS: TEMP 98
[2024-01-12 03:19] VITALS: BP 129/67; O2SAT 99
--- NOTE | 2024-01-12 14:00 | EKG ---
Test Date: 2024-01-11 Test Time: 15:01:19 Wheelage Clerk: AUDREY MEASUREMENT RESULTS: Intervals: Rate: 53 SC: 248 QRSD: 92 QT: 500 QTc: 469 [place]: P: 66 SC: 248 QRS: -10 T: 38 INTERPRETIVE STATEMENTS: Sinus bradycardia with 1st degree AV block Minimal voltage criteria for LVH, may be normal variant Borderline ECG Compared to ECG 11/27/2022 14:31:36 First degree AV block now present Left ventricular hypertrophy now present Sinus rhythm no longer present Electronically Signed On 01-12-24 13:59:23 CDT by Ketan Pacheco
--- NOTE | 2024-01-15 12:50 | EKG ---
Test Date: 2024-01-11 Test Time: 15:01:57 Pot Reliner: AUDREY MEASUREMENT RESULTS: Intervals: Rate: 57 CT: 244 QRSD: 94 QT: 482 QTc: 469 [place]: P: 92 CT: 244 QRS: -13 T: 62 INTERPRETIVE STATEMENTS: Sinus bradycardia with 1st degree AV block Moderate voltage criteria for LVH, may be normal variant Cannot rule out Septal infarct, age undetermined Abnormal ECG Compared to ECG 01/11/2024 15:01:19 Myocardial infarct finding now present Electronically Signed On 01-15-24 12:42:49 CDT by Ketan Pacheco
== END 2024-01-12 03:04 ==
LOC: ER 14:25
DX: R45.851 Suicidal ideations (principal); G30.9 Alzheimer's disease, unspecified; F02.818 Dementia in other diseases classified elsewhere, unspecified severity, with other behavioral disturbance; F41.9 Anxiety disorder, unspecified; I10 Essential (primary) hypertension
CPT/HCPCS: 93005 ×2; 85025; 81001; 80048; 36415; 85610; 80076; 85730; 80307; 96372; 99285; 80143; 80179; 82077; J3486 ×2